=== PATIENT | male | born 1935 | race Caucasian/White ===

== ENCOUNTER 2016-06-27 17:14 | Inpatient (IN) | payer BC, OTHER ==
[~2016-06-27] VITALS: Ht 170.2 cm; Wt 67.5 kg
[~2016-06-27 17:14] MED LIST changes: -CYAN500T PO; -FRS/40 PO; -ISOS60TA25 PO; -METF1000 PO; -METF1TAB53 PO; -POTA10CA28 PO; -RANO500T PO
--- NOTE | 2016-06-27 17:38 | EMERGENCY ROOM VISIT NOTE ---
History Report prepared by Lorna: Kota Leos Under the Supervision of: Dr. Carlin Trevizo M.D. First contact with patient: 17:20 Chief Complaint: REFERRED BY DOCTOR Stated Complaint: FLUID AROUND HEART:NATALIYA LIRIANO SENT TO ER History of Present Illness The patient is a 80 year old male who presents to the Emergency Room with complaints of a referral by Dr. Rosenthal. The patient fell around Peyton time and has since developed fluid around his lungs and heart. He notes he is not eating well and is unable to walk around at home. He admits to having some mild shortness of breath and abdominal discomfort, but denies any headache, vision changes, neck pain, or black or bloody stool. He denies any history of liver problems, and notes he takes Plavix and Aspirin. Source of History: patient Onset: just under 1 month ago Position: other (global) Quality: other (fluild around lungs and heart) Associated Symptoms: + SOB (mild), + abdominal pain (discomfort), No headache, No neck pain Note: The patient denies any vision changes or black or bloody stool. Review of Systems See HPI for pertinent positives & negatives. A total of 10 systems reviewed and were otherwise negative. Past Medical & Surgical Medical Problems: (1) Acute on chronic renal failure (2) Acute on chronic systolic (congestive) heart failure (3) Chest Pain Nos (4) Diverticulosis Colon (W/O Ment Of Hemorrhage) (5) Hyperlipidemia Nec/Nos (6) Joint Pain-L/Leg Family History No pertinent family history stated. Social History Smoking Status: Never Smoker Marital Status: Housing Status: lives with significant other Occupation Status: retired Current/Historical Medications Scheduled Aspirin (Aspirin EC Low Dose), 81 MG PO QAM Atorvastatin (Atorvastatin Calcium), 80 MG PO QAM Clopidogrel Bisulfate (Clopidogrel), 75 MG PO QAM Cyanocobalamin (Vitamin B-12), 500 MCG PO DAILY Furosemide (Lasix), 40 MG PO BID Isosorbide Mononitrate Ext Rel (Imdur Ext Rel), 60 MG PO QAM Lisinopril (Lisinopril), 5 MG PO QAM Metformin Hcl (Glucophage Ext Rel), 1,000 MG PO BID Metoprolol Succinate (Metoprolol Succinate ER), 50 MG PO DAILY Potassium Chloride (Micro-K Ext Rel), 10 MEQ PO DAILY Ranolazine (Ranexa), 500 MG PO BID Scheduled PRN Nitroglycerin (Nitrostat), 0.4 MG SL UD PRN for Chest Pain Allergies Coded Allergies: No Known Allergies (Unverified , 06/27/16) Physical Exam Vital Signs Date Time Temp Pulse Resp B/P Pulse Ox O2 Delivery O2 Flow Rate FiO2 06/27/16 18:59 35.7 06/27/16 18:01 62 06/27/16 18:00 34.3 61 10 113/66 98 Room Air 06/27/16 17:19 86 20 95/60 100 Room Air Physical Exam GENERAL: Patient is chronically unwell appearing and in no acute distress. Cachectic in appearance. HEENT: No acute trauma, normocephalic atraumatic, mucous membranes moist, no nasal congestion, no scleral icterus. Old bruise right orbit. NECK: No stridor, no adenopathy, no meningismus, trachea is midline. LUNGS: No dyspnea. Clear to auscultation and equal bilaterally. No wheeze, no rhonchi. Decreased breath sounds in lower lung lópez; crackles in all lópez. HEART: Regular rate and rhythm. No murmurs, rubs, gallops appreciated. ABDOMEN: Soft, nontender, bowel sounds positive, no masses appreciated, no peritonitis. BACK: No midline tenderness, no CVA tenderness EXTREMITIES: Normal motion all extremities, no cyanosis. 4+ edema bilaterally in the lower legs. NEUROLOGIC: Alert and oriented, no acute motor or sensory deficits, no focal weakness, cranial nerves grossly intact. SKIN: No rash, no jaundice, no diaphoresis. Medical Decision & Procedures ER Provider Diagnostic Interpretation: X ray results are stated below per my interpretation and the radiologist's interpretation. CHEST ONE VIEW PORTABLE FINDINGS: There are low lung volumes. No pneumothorax. Small bilateral pleural effusions. The heart remains mildly enlarged. Perihilar interstitial and vascular thickening likely represents mild pulmonary edema. Bibasilar densities favor compressive atelectasis from the pleural effusions. IMPRESSION: Mild interstitial pulmonary edema with small bilateral pleural effusions. Bibasilar densities favor compressive atelectasis from the pleural fluid. Electronically signed by: Edward Kelley M.D. 06/27/2016 5:49 PM Dictated Date/Time: 06/27/2016 5:47 PM Laboratory Results 06/27/16 17:50 Red Blood Count 3.76, Mean Corpuscular Volume 94.1, Mean Corpuscular Hemoglobin 32.4, Mean Corpuscular Hemoglobin Concent 34.5, Mean Platelet Volume 11.6, Neutrophils (%) (Auto) 96.3, Lymphocytes (%) (Auto) 2.7, Monocytes (%) (Auto) 0.7, Eosinophils (%) (Auto) 0.0, Basophils (%) (Auto) 0.1, Neutrophils # (Auto) 11.62, Lymphocytes # (Auto) 0.33, Monocytes # (Auto) 0.08, Eosinophils # (Auto) 0.00, Basophils # (Auto) 0.01 06/27/16 17:50 Test 06/27/16 17:50 White Blood Count 12.07 K/uL (4.8-10.8) Red Blood Count 3.76 M/uL (4.7-6.1) Hemoglobin 12.2 g/dL (14.0-18.0) Hematocrit 35.4 % (42-52) Mean Corpuscular Volume 94.1 fL (80-100) Mean Corpuscular Hemoglobin 32.4 pg (25-34) Mean Corpuscular Hemoglobin Concent 34.5 g/dl (32-36) Platelet Count 204 K/uL (130-400) Mean Platelet Volume 11.6 fL (7.4-10.4) Neutrophils (%) (Auto) 96.3 % Lymphocytes (%) (Auto) 2.7 % Monocytes (%) (Auto) 0.7 % Eosinophils (%) (Auto) 0.0 % Basophils (%) (Auto) 0.1 % Neutrophils # (Auto) 11.62 K/uL (1.4-6.5) Lymphocytes # (Auto) 0.33 K/uL (1.2-3.4) Monocytes # (Auto) 0.08 K/uL (0.11-0.59) Eosinophils # (Auto) 0.00 K/uL (0-0.5) Basophils # (Auto) 0.01 K/uL (0-0.2) RDW Standard Deviation 55.6 fL (36.4-46.3) RDW Coefficient of Variation 16.1 % (11.5-14.5) Immature Granulocyte % (Auto) 0.2 % Immature Granulocyte # (Auto) 0.03 K/uL (0.00-0.02) Toxic Granulation 1+ Echinocytes 2+ Prothrombin Time 14.6 SECONDS (9.0-12.0) Prothromb Time International Ratio 1.3 (0.9-1.1) Activated Partial Thromboplast Time 32.4 SECONDS (21.0-31.0) Partial Thromboplastin Ratio 1.2 Anion Gap 14.0 mmol/L (3-11) Est Creatinine Clear Calc Drug Dose 19.7 ml/min Estimated GFR () 25.8 Estimated GFR (Non- 22.3 BUN/Creatinine Ratio 34.8 (10-20) Calcium Level 9.2 mg/dl (8.5-10.1) Phosphorus Level 3.5 mg/dl (2.5-4.9) Magnesium Level 2.4 mg/dl (1.8-2.4) Total Bilirubin 1.2 mg/dl (0.2-1) Direct Bilirubin 0.6 mg/dl (0-0.2) Aspartate Amino Transf (AST/SGOT) 49 U/L (15-37) Alanine Aminotransferase (ALT/SGPT) 41 U/L (12-78) Alkaline Phosphatase 226 U/L (45-117) Total Creatine Kinase 339 U/L (39-308) Creatine Kinase MB 3.2 ng/ml (0.5-3.6) Creatine Kinase MB Ratio 0.9 (0-3.0) Pro-B-Type Natriuretic Peptide > 20253 pg/ml (0-1800) Total Protein 6.6 gm/dl (6.4-8.2) Albumin 2.1 gm/dl (3.4-5.0) Lipase 229 U/L (73-393) Laboratory results as reviewed by me. ECG Indication: chest pain Rate (beats per minute): 67 Rhythm: normal sinus Findings: no acute ischemic change, no ectopy, other (low voltage) ED Course 1729: The patient was evaluated in room B10. A complete history and physical exam was performed. 1800: Discussed the patient's case with Dr. Valles - Otis May. The patient will be evaluated for further treatment and disposition. 1805: Upon reevaluation, the patient is hemodynamically stable. Discussed results and treatment plan with the patient. He verbalized understanding and agreement with the treatment plan. The patient will be evaluated for further management. 1846: I reassessed the patient and he is stable. Medical Decision Differential: Sepsis, Infectious (UTI/Pneumonia/Meningitis/etc), Metabolic/ Electrolyte Abnormality, Cardiac, Hepatic, Endocrine, Toxicologic, Neurologic, amongst other pathologies entertained. 80 yr old male arrives with severe weakness at home found to be in acute renal failure as outpatient and sent to ED for admission. Patient appears likely intravascularly depleted, but with anasarca/extravascular overload. CXR with pulmonary edema. Trop elevated though may all be renal failure related as no chest pain. With albumin low I feel much of this is poor nutritional status. Discussed with nephrology (Dr Rosenthal) who feels patient will need to come in and he will see patient tomorrow. Medical team aware and will bring patient in. Stable throughout ED stay. No clear evidence of infection. Consults Time Called: 1755 Consulting Physician: Dr. Valles - Otis May Returned Call: 1800 Discussed the patient's case with Dr. Valles - Otis May. The patient will be evaluated for further treatment and disposition. Impression Primary Impression: Acute renal failure Additional Impressions: Anasarca Pulmonary edema Troponin level elevated Scribe Attestation The scribe's documentation has been prepared under my direction and personally reviewed by me in its entirety. I confirm that the note above accurately reflects all work, treatment, procedures, and medical decision making performed by me. Departure Information Referrals Himanshu Rosenthal M.D. (PCP) Patient Instructions My [facility] Problem Qualifiers Primary Impression: Acute renal failure Acute renal failure type: unspecified Qualified Codes: N17.9 - Acute kidney failure, unspecified Additional Impressions: Pulmonary edema Chronicity: acute Qualified Codes: J81.0 - Acute pulmonary edema
--- NOTE | 2016-06-27 17:51 | DIAGNOSTIC IMAGING REPORT ---
CHEST ONE VIEW PORTABLE HISTORY: Generalized Weakness COMPARISON: Chest 04/10/2015. FINDINGS: There are low lung volumes. No pneumothorax. Small bilateral pleural effusions. The heart remains mildly enlarged. Perihilar interstitial and vascular thickening likely represents mild pulmonary edema. Bibasilar densities favor compressive atelectasis from the pleural effusions. IMPRESSION: Mild interstitial pulmonary edema with small bilateral pleural effusions. Bibasilar densities favor compressive atelectasis from the pleural fluid. Electronically signed by: Edward Kelley M.D. 06/27/2016 5:49 PM Dictated Date/Time: 06/27/2016 5:47 PM
[2016-06-27] MEDS ORDERED: FRS/40 PO (18:00)
[2016-06-27] MEDS ORDERED: CYAN500T PO (18:00)
[2016-06-27] MEDS ORDERED: POTA10CA28 PO (18:00)
[2016-06-27] MEDS ORDERED: ISOS60TA25 PO (18:00)
[2016-06-27] MEDS ORDERED: RANO500T PO (18:00)
[2016-06-27] MEDS ORDERED: METF1TAB53 PO (18:00)
[2016-06-27 18:16] LABS: HEMATOCRIT 35.4 % (42-52); MEAN CELL VOLUME 94.1 fL (80-100); MEAN CORPUSCULAR HEMOGLOBIN 32.4 pg (25-34); MEAN CORPUSCULAR HGB CONC 34.5 g/dl (32-36); MEAN PLATELET VOLUME 11.6 fL (7.4-10.4); PLATELET COUNT 204 K/uL (130-400); RED BLOOD COUNT 3.76 M/uL (4.7-6.1); WHITE BLOOD COUNT 12.07 K/uL (4.8-10.8)
[2016-06-27 18:32] LABS: INR 1.3 (0.9-1.1); PARTIAL THROMBOPLASTIN RATIO 1.2; PROTHROMBIN TIME (PATIENT) 14.6 SECONDS (9.0-12.0)
[2016-06-27 18:34] LABS: ALT/SGPT 41 U/L (12-78); BLOOD UREA NITROGEN 91 mg/dl (7-18); BUN/CREATININE RATIO 34.8 (10-20); CALCIUM 9.2 mg/dl (8.5-10.1); CARBON DIOXIDE 22 mmol/L (21-32); CHLORIDE 103 mmol/L (98-107); GLUCOSE 90 mg/dl (70-99); MAGNESIUM 2.4 mg/dl (1.8-2.4); POTASSIUM 5.4 mmol/L (3.5-5.1); SODIUM 139 mmol/L (136-145)
[2016-06-27 18:44] LABS: ALKALINE PHOSPHATASE 226 U/L (45-117); AST/SGOT 49 U/L (15-37); CKMB/CK RATIO 0.9 (0-3.0); PHOSPHORUS 3.5 mg/dl (2.5-4.9)
[2016-06-27 18:58] LABS: BASO % 0.1 %; BASO ABS # 0.01 K/uL (0-0.2); COMPLETE YES; ECHINOCYTES 2+; IG% 0.2 %; LYMPH % 2.7 %; LYMPH ABS # 0.33 K/uL (1.2-3.4); MONO % 0.7 %; NEUT % 96.3 %; TOXIC GRANULATION 1+
[2016-06-27] MEDS ORDERED: NITROGLYCERIN 0.4 MG SL PER TAB CHARGE SL PRN (19:15)
[2016-06-27] MEDS ORDERED: ACETAMINOPHEN 325 MG TAB PO PRN (19:15)
[2016-06-27] MEDS ORDERED: POLYETHYLENE (MIRALAX) 17 GM PACK PO PRN (19:15)
[2016-06-27] MEDS ORDERED: ONDANSETRON INJ 2 MG/ML 2 ML VIAL IV PRN (19:15)
[2016-06-27] MEDS ORDERED: PHARMACY GLYCEMIC MGMT CONSULT PRN (19:55)
--- NOTE | 2016-06-27 20:19 | Pharmacy Progress Note ---
Glycemic Control Intl Consult Date of Service Jun 27, 2016. Scope Glycemic Pharmacist consulted by Dr Kruger on 06/27/2016 for glycemic control and to write orders per [facility] inpatient glycemic control protocol Objective Weight (Kilograms): 66.200 Accuchecks BSG (last 24hrs): Test 06/27/16 17:50 Random Glucose 90 mg/dl (70-99) Laboratory Data (last 24hrs) Test 06/27/16 17:50 Anion Gap 14.0 mmol/L BUN/Creatinine Ratio 34.8 Blood Urea Nitrogen 91 mg/dl Creatinine 2.60 mg/dl Potassium Level 5.4 mmol/L Sodium Level 139 mmol/L White Blood Count 12.07 K/uL Red Blood Count 3.76 M/uL Hemoglobin 12.2 g/dL Hematocrit 35.4 % Mean Corpuscular Volume 94.1 fL Mean Corpuscular Hemoglobin 32.4 pg Mean Corpuscular Hemoglobin Concent 34.5 g/dl Platelet Count 204 K/uL Mean Platelet Volume 11.6 fL Neutrophils (%) (Auto) 96.3 % Lymphocytes (%) (Auto) 2.7 % Monocytes (%) (Auto) 0.7 % Eosinophils (%) (Auto) 0.0 % Basophils (%) (Auto) 0.1 % Neutrophils # (Auto) 11.62 K/uL Lymphocytes # (Auto) 0.33 K/uL Monocytes # (Auto) 0.08 K/uL Eosinophils # (Auto) 0.00 K/uL Basophils # (Auto) 0.01 K/uL HbA1c 6.6% on 05/29/2016 Recent Pertinent Medications Outpatient Anti-diabetic Regimen: * metformin ER 1000 mg PO BID * A1c = 6.6 % 05/29/2016 Risk Factors for Insulin Resistance: * renal dysfunction with baseline serum creatinine of 1.2-1.3 mg/dL and currently 2.6 mg/dL * Steroids: * Infection: * Pressors: * IVF: * Recent Surgery * Diet: * Mechanical Ventilation: Assessment & Plan ASSESSMENT: * ADA & AACE recommend a goal blood sugar range 140-180 mg/dl for the majority of critically ill & non-critically ill patients. However, more stringent targets may be selected in individual cases. PLAN FOR INPATIENT GLYCEMIC CONTROL: * Holding outpatient oral diabetes medications * Correctional Insulin with NOVOLOG per scale ACHS * Goal Range: Low 120 mg/dL - High 160 mg/dL * Correction Factor: 35 mg/dL/unit * Nutritional / Prandial insulin per carb ratio of 1 unit per 20 grams CHO consumed * Please note that the plan above was derived based on current level of insulin resistance and hospital stress. These recommendations are appropriate for inpatient admission only. Plan of care upon discharge will need to be reassessed to avoid potential outpatient hypo/hyperglycemia. Thank you.
[2016-06-27] MEDS ORDERED: GLUCOSE 40% GEL 15 GM TUBE PO PRN (20:30)
[2016-06-27] MEDS ORDERED: DEXTROSE 50% 50 ML SYR IV PRN (20:30)
[2016-06-27] MEDS ORDERED: GLUCOSE 10 TABS/TUBE PO PRN (20:30)
[2016-06-27] MEDS ORDERED: GLUCAGON FOR INJ 1 MG VIAL SQ PRN (20:30)
[2016-06-27] MEDS: INSULIN ASPART 100 UNITS/ML 3 ML PEN SC SCH (21:39)
[2016-06-27] MEDS: RANOLAZINE 500 MG ER TAB PO SCH (21:39)
[2016-06-27 21:52] VITALS: BP 96/58; PULSE 68; TEMP 36.6; O2SAT 92; Ht 170.2 cm; Wt 67.5 kg
[2016-06-27 22:12] VITALS: PULSE 76; O2SAT 96
--- NOTE | 2016-06-27 22:32 | HISTORY & PHYSICAL EXAMINATION ---
DATE OF ADMISSION: 06/27/2016 PCP: Dr. Edward Perrin. INTEGRATIVE MEDICINE PHYSICIAN: Dr. Himanshu Rosenthal. CHIEF COMPLAINT: Generalized weakness and abnormal labs. HISTORY OF PRESENT ILLNESS: Mr. Mcwilliams is an 80-year-old gentleman with a history of diabetes, CKD, coronary artery disease status post ME in 2014 as well as chronic systolic heart failure. His last echocardiogram was from April 2015 and at that time showed an ejection fraction of 35%. There were multiple hypokinetic or akinetic wall segments, RV looked okay, aortic valve showed mild stenosis, there was also moderate mitral regurg and mild tricuspid regurg. The patient, his children and are at the bedside and provide the history. Apparently, since his heart attack, he really has been having exertional dyspnea, not really able to participate in the activities he normally enjoys; however, over the past 2 weeks, there seems to have been a distinct rapid decline in function. He tells me that he is unable to even get out of a chair. He tells me he has difficulty even changing position in bed. He mentions that he has had some lower extremity edema, was seen by his hack driver who increased his dose of Lasix; however, he says this really had no effect on the edema. He had some routine lab work checked today by his process owner and his creatinine was found to have increased from a baseline of around 1 to 1.1 or 1.2 up to 2.5 this morning. At this point, he was directed to come to the Emergency Department for further workup. His labs here include a chemistry showing a sodium of 139, potassium was high at 5.4, chloride 103, bicarbonate 22, BUN was 91, creatinine 2.6, glucose 90, calcium 9.2, phosphorus 3.5, magnesium 2.4, bilirubin was a little bit elevated at 1.2 with a direct fraction of 0.6, AST 49, ALT 41, alkaline phosphatase was 226, albumin 2.1, total protein 6.6. Cardiac enzymes included a troponin that was elevated to 0.171, CPK of 339, CK-MB of 3.2. His CBC shows a white count of 12,000 with 96% neutrophils, hemoglobin was 12.2 which is around or even slightly higher than his baseline, hematocrit 35.4, platelets 204,000. PT and PTT were both slightly high, PT was 14.6 for an INR of 1.3, PTT was 32.4. The patient himself denies any recent fevers but says he has been having chills. He says that he is cold all the time, constantly using multiple blankets. He denies any chest pain or pressure or discomfort. Denies any palpitations. He says he has had some shortness of breath associated with cough which he says is nonproductive though he feels like there is phlegm in his throat. His mentions that he seems to choke after he eats solid foods. He denies any vomiting, denies any abdominal pain, his mentions that he has had some loose stools over the past couple weeks but says this has been going on longer than his other current issues. He denies any dysuria, hematuria or increased urinary frequency. He denies any increase in his lower extremity edema over the past 2 weeks. Denies any swollen or newly painful joints. He does complain of chronic right knee pain. Denies any new rash. Further, he denies any numbness, tingling or focal weakness and denies any headache. At this point, the patient is being admitted to the telemetry floor for further workup and management. ALLERGIES: None. HOME MEDICATIONS: Include: 1. Aspirin 81 mg p.o. daily. 2. Plavix 75 mg p.o. daily. 3. Atorvastatin 80 mg p.o. daily. 4. Vitamin B12 500 mcg p.o. daily. 5. Lasix 40 mg p.o. b.i.d. for the last 1 week, prior to that had been 40 mg p.o. daily. 6. Imdur 60 mg p.o. daily. 7. Lisinopril 5 mg p.o. daily. 8. Metformin 1000 mg p.o. twice daily. 9. Toprol-XL 50 mg p.o. daily. 10. Sublingual nitroglycerin p.r.n. for chest pain. 11. Potassium 10 mEq p.o. twice daily. 12. Ranexa 500 mg p.o. twice daily. PAST MEDICAL HISTORY: Includes: 1. Coronary artery disease with inferior wall ME in 2014, status post 1 bare-metal stent to the RCA. 2. Chronic systolic heart failure with his most recent ejection fraction from April 2015 being 35%. 3. Moderate mitral regurg. 4. Type 2 diabetes. 5. Osteoarthritis. 6. Dyslipidemia. 7. Mild aortic stenosis. FAMILY HISTORY: One brother in his 30s of an ME, one sibling with colon cancer, one sibling with breast cancer. SOCIAL HISTORY: The patient lives at home with his . He has been much less active and somewhat more dependent over the past 1 year since having an ME. Currently, he is dependent for most aspects of his care over the past 2 weeks. His mentions that he has an approximately 1-pack-year history of smoking but quit when he was a youth. No history of drug or alcohol abuse. 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 REVIEW OF SYSTEMS: A 14-system review was conducted and was found to be completely negative except as otherwise indicated above in the history of present illness. PHYSICAL EXAMINATION: VITAL SIGNS: Currently show temperature is 35.7 rectally, pulse is 62, respiratory rate has been between 10 and 20, blood pressure is 113/66, oxygen saturation 98% on room air. GENERAL: The patient is awake, alert, oriented. He is in no acute distress. He appears to be chronically ill and is somewhat emaciated. HEENT: Sclerae are nonicteric. The mucous membranes are dry. NECK: Trachea is midline. There is no JVD. There is no cervical lymphadenopathy. Thyroid is not palpable. RESPIRATORY: The lungs have scattered crackles throughout. Overall, air entry is fair. He is not in any respiratory distress. CARDIOVASCULAR: S1 and S2 are heard with a regular rate and rhythm. ABDOMEN: Soft, nontender, nondistended. Bowel sounds are present. EXTREMITIES: Cool. There is 3+ pitting edema in bilateral lower extremities. SKIN: Multiple small sacral decubitus ulcers, one of which on the right side is through the dermis completely, the rest are more superficial. There is no purulence. There is no other evidence of infection. NEUROLOGIC: The patient is awake and alert. There are no obvious focal deficits. Gait was not assessed. PSYCHIATRIC: The patient has a somewhat flat affect, otherwise unremarkable. DIAGNOSTIC INVESTIGATIONS: Labs, imaging and EKG were reviewed as outlined above in the history of present illness. ASSESSMENT AND PLAN: 1. Acute on chronic systolic congestive heart failure. 2. Acute on chronic renal failure. 3. Elevated troponin. 4. Coronary artery disease. 5. Type 2 diabetes. 6. Malnutrition. 7. Sacral decubitus ulcer. At this point, this patient is presenting with a 2-week history of a significant decline in functional status. He is with generalized weakness, edema, renal failure and an elevated troponin. I am concerned he may have had an ME in the last 2 weeks and is now with a significant decline in his ejection fraction. He is maintaining a blood pressure at this point, he is hemodynamically stable. We will continue to trend his cardiac enzymes. If he does trend upward, we would need to initiate him on anticoagulation to treat as an NSTEMI, but at this point, given lack of any symptoms recently, we will continue to trend his enzymes first. We will ask cardiology to evaluate as well as nephrology. We will check an echocardiogram to evaluate EF as well as his valvular function. We will hold all diuretics for the time being, at least until he can be seen by nephrology. We will hold his metformin and start him on sliding scale coverage. We will ask for a wound care consult as well as the dietitian to stop by for recommendations regarding his malnutrition. DVT prophylaxis will be with subcutaneous heparin. Total time spent preparing this history and physical was 60 minutes.
[2016-06-28] VITALS (7 sets, daily range): BP systolic 87–114; BP diastolic 50–71; PULSE 64–71; TEMP 35–36.7; O2SAT 93–99
[2016-06-28 05:54] LABS: HEMATOCRIT 31.5 % (42-52); MEAN CELL VOLUME 92.9 fL (80-100); MEAN CORPUSCULAR HEMOGLOBIN 32.2 pg (25-34); MEAN CORPUSCULAR HGB CONC 34.6 g/dl (32-36); MEAN PLATELET VOLUME 11.4 fL (7.4-10.4); PLATELET COUNT 172 K/uL (130-400); RED BLOOD COUNT 3.39 M/uL (4.7-6.1)
[2016-06-28 06:21] LABS: COMPLETE YES; ECHINOCYTES 3+; IG% 0.3 %; LYMPH % 3.4 %; LYMPH ABS # 0.36 K/uL (1.2-3.4); MONO % 0.7 %; NEUT % 95.6 %; TOXIC GRANULATION OCCASIONAL
[2016-06-28 06:22] LABS: BUN/CREATININE RATIO 36.5 (10-20); CALCIUM 8.8 mg/dl (8.5-10.1); CREATININE 2.7 mg/dl (0.60-1.40); POTASSIUM 5.4 mmol/L (3.5-5.1)
[2016-06-28] MEDS: INSULIN ASPART 100 UNITS/ML 3 ML PEN SC SCH ×4 (07:00→20:43)
[2016-06-28] MEDS ORDERED: INFLUENZA ADMINISTRATION CHARGE ONE (08:00)
[2016-06-28] MEDS ORDERED: INFLUENZA VIRUS QUAD VACCINE 0.5 ML SYR IM. ONE (08:00)
[2016-06-28] MEDS ORDERED: METOPROLOL SUCC 50MG EXT REL TAB PO SCH (09:00)
--- NOTE | 2016-06-28 09:15 | Pharmacy Progress Note ---
Glycemic: Assessment & Plan Date of Service Jun 28, 2016. Assessment & Plan Item Value Date Time Bedside Glucose 89 mg/dl 06/28/16 0635 Random Glucose 92 mg/dl 06/28/16 0527 Bedside Glucose 90 mg/dl 06/27/16 2138 Home Diabetes Regimen: * Currently on hold during this ADM: metformin 1000mg ER po BID PLAN: No basal needed at this time. Will only order Novolog per CF, will reassess need to add CR over time. * Basal insulin: not needed at this time * Correctional Insulin: Novolog Correction per scale ACHS Goal Range: Low 120 mg/dL - High 160 mg/dL Correction Factor: 35 mg/dL/unit * Prandial insulin: not needed at this time Pharmacy will continue to monitor patient daily and write orders per [facility] inpatient glycemic control protocol. Thanks. * Please note that the plan above was derived based on current level of insulin resistance and hospital stress. These recommendations are appropriate for inpatient admission only. Plan of care upon discharge will need to be reassessed to avoid potential outpatient hypo/hyperglycemia.
[2016-06-28] MEDS: CYANOCOBALAMIN 500 MCG TAB (VIT B-12) PO SCH (09:39)
[2016-06-28] MEDS: RANOLAZINE 500 MG ER TAB PO SCH (09:39)
[2016-06-28] MEDS: CLOPIDOGREL BISULFATE 75 MG TAB PO SCH (09:40)
[2016-06-28] MEDS: ASPIRIN 81 MG ECTAB PO SCH (09:40)
[2016-06-28] MEDS: ATORVASTATIN 40 MG TAB PO SCH (09:41)
[2016-06-28] MEDS: ISOSORBIDE MONONITRATE 60 MG TABCR PO SCH (09:43)
[2016-06-28] MEDS: HEPARIN SOD 5000 UNIT/0.5 ML CARP SQ SCH ×2 (09:44→20:43)
[2016-06-28] MEDS: DOBUTamine / D5W 500 MG IV PRN (12:02)
--- NOTE | 2016-06-28 12:07 | NEPHROLOGY CONSULTATION ---
DATE OF CONSULTATION: 06/28/2016 REFERRING PHYSICIAN: [facility] hospitalist service. PROBLEM: Renal insufficiency associated with congestive heart failure. SUBJECTIVE: Mr. Mcwilliams is an 80-year-old gentleman who I met for the first time in consultation with the [facility] heart failure clinic yesterday. He has been followed regularly by Dr. Edward Perrin primarily for complex sleep apnea syndrome and has also been followed by Dr. Markos Nelson and Dr. Mark Christie for coronary artery disease and his ischemic cardiomyopathy. Apparently, there is a longstanding history of noninsulin dependent diabetes mellitus, which has been managed with Metformin 1000 mg twice daily prior to his hospitalization. Additionally, he has a history of hypercholesterolemia, which has been managed with atorvastatin 80 mg daily. Additionally, he takes an 81-mg aspirin a day. There is no apparent history of hypertension and review of his chart indicates that his blood pressure at least in recent years has generally been in the range of 100-110 systolic over 60-70 diastolic. His other issues include a complex sleep apnea syndrome, for which he has been on BiPAP. Apparently, despite the above issues, Mr. Mcwilliams was doing relatively well until 04/10/2015 when he presented here with chest pain. He went directly to the cardiac catheterization lab and was found to have 3-vessel coronary artery disease. He was treated with a bare-metal stent to the right coronary artery. Apparently, no other interventions were done at that time. Since that time, he has been on the aspirin as noted above as well as clopidogrel 75 mg daily. His most recent echocardiogram was done in April 2015. That showed evidence of left ventricular hypertrophy with a moderate decrease in left ventricular function. He had an ejection fraction of 34.5%. He was noted to have moderate inferior and posterior wall hypokinesis as well as apical and anterior wall akinesis. He had mild aortic stenosis with an estimated valve area of 1.7 square cm. He also had evidence of mitral annular calcification. He had mild tricuspid regurgitation with an estimated increase in his right ventricular systolic pressure to the range of 30-40 mmHg. He did have some evidence of congestive heart failure related to an ischemic cardiomyopathy. His other medications included isosorbide mononitrate ER 60 mg daily, lisinopril 5 mg daily and metoprolol succinate ER 50 mg daily. More recently, Ranexa 500 mg q. 12 hours was added to his regimen. Additionally, he has been taking Lasix 40 mg daily with potassium chloride 10 mEq daily. Mr. Mcwilliams was apparently doing reasonably well and remained somewhat functional in his compromised state of ill health until about 2015. From that time forward, he developed increasing edema, increasing weakness, poor appetite and a gradual decrease in his mobility. He was seen by Dr. Christie approximately 1 week ago. At that time, he showed increasing evidence of congestive heart failure. His Lasix was increased to 80 mg daily. Nonetheless, Mr. Mcwilliams continued on his decline. He was seen in followup in heart failure clinic yesterday. At that time, he appeared to be a gentleman with cardiac cachexia. He was obviously weak. He did not appear to be particularly short of breath. He was not complaining of chest pain and he did not give a history of any chest pain that occurred around that time when his decline occurred. On physical exam, he showed obvious signs of weight loss. He was relatively hypotensive. He was not particularly tachycardic. Jugular veins were elevated. I did not note an enlarged liver at that time. He had significant lower extremity edema. He presented himself as a gentleman with obvious cardiac cachexia. He was referred to the Emergency Room for admission and care. His other medical issues include a history of complex sleep apnea, for which he uses BIPAP at home. He has been noted to have microscopic hematuria, but his renal function has always been reasonably normal with serum creatinines generally ranging from 0.95 to 1.2 mg/dL. His BUN within the recent months has generally been in the range of 22-23. His serum albumin was in the range of 3.3-3.9 g/dL. However, yesterday, laboratory work showed a BUN of 91 and a creatinine of 2.5 mg/dL and a serum albumin of 2.1 g/dL. 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 The remainder of his past medical history, family history, social history and review of system is summarize on Dr. Kruger's very complete admission note and I have nothing to add to that. OBJECTIVE: GENERAL: On physical exam at the current time, Mr. Mcwilliams appears as a chronically ill gentleman, who was obviously very weak. He shows signs of recent weight loss. VITAL SIGNS: He is afebrile (36.3), his blood pressure 95/50, his pulse 69 and regular, respiratory rate 18, and his pulse ox 95% on room air. SKIN: Shows slightly diminished skin turgor. He has some scattered ecchymoses. There is no obvious rash or infiltrative skin disease. LYMPHATICS: Show no palpable lymphadenopathy. HEAD: Normal. EYES: Grossly normal. He has no conjunctival icterus. Pupils are reactive to light. I did not examine the ocular fundi. EARS, NOSE, MOUTH AND THROAT: Unremarkable. Oral mucous membranes are slightly dry. NECK: Shows jugular venous distention about 6-7 cm above the clavicle, lying at about 45 degrees. I hear no carotid bruit. There is no thyromegaly. CHEST: Shows a few scattered coarse rales. There are no rhonchi. He has a loose cough. Breath sounds are generally slightly diminished. His chest wall shows an apparent displaced right clavicle at the sternoclavicular joint. CARDIAC: Shows a regular rhythm. S1 and S2 are normal. I do not hear definite gallop sounds at this time. He does have a grade 1-2/6 systolic ejection murmur heard best along the left sternal border and at the base as well as at the apex. ABDOMEN: Soft. It is not particularly tender. There is no definite fluid wave. He is not particularly tender over the liver. His spleen is not palpable. EXTREMITIES: Show no cyanosis or clubbing. He has 3+ lower extremity edema below the knees and 1-2+ lower extremity edema from the upper thigh to the knee. Peripheral pulses are slightly diminished, but they are present. NEUROLOGIC: Shows him to be globally weak, but he has no lateralizing changes. PERTINENT LABORATORY WORK: Here today shows a white count of 10,600 with 95.6% neutrophils, 3.4% lymphocytes, and 0.7% monocytes. His hemoglobin is 10.9, his hematocrit 31.5, and his platelet count 172,000. His prothrombin time on admission was 14.6 with an INR of 1.3. His PTT was 32.4 with a PTTR of 1.2. Clinical chemistries from today show a sodium of 141 mmol/L, potassium 5.4 mmol/L, chloride 104 mmol/L, and CO2 content 25 mmol/L. His anion gap is 12.0, but does not take into account his serum albumin, which was 2.1. Taking that into account, his anion gap would more likely be 17. His BUN is 99 and his creatinine 2.7. Random blood sugar was 92 and his serum calcium was 8.8. His troponins have varied from 0.154 to 0.171. His CK and CK-MBs have been essentially within the normal range. An echocardiogram was done earlier today. ASSESSMENT: From the standpoint of his renal function, it certainly appears that the disproportionate increase in his BUN to his creatinine is consistent with prerenal azotemia. He likely has biventricular heart failure, although clinically it seems as if the right side is worse than the left. I suspect that his ejection fraction in general is probably worse than it was in 2015. His low serum albumin will make it extremely difficult to diurese him. Overzealous use of diuretics may be problematic. Depending on the results of his echocardiogram, he might be a decent candidate for a dobutamine starting at a dose of 5 mcg per kilogram per minute. If assuming that is started by cardiology, I would then start him on Lasix 40 mg mixed with 12.5 grams of albumin infuse daily. Depending on his laboratory work and response, we can always increase his diuretics. Hopefully, the albumin will not give him an immediate oncotic load that could be manifested by worsening left-sided heart failure symptoms. No other workup is needed immediately. I do not think imaging studies of his kidneys at this time will be at all helpful. Given his global weakness, we need to make sure that he is going to be able to void. Intermittent bladder scans will be helpful in that regard. Thank you for allowing me to participate in his inpatient care. I will follow him with you.
--- NOTE | 2016-06-28 13:38 | CARDIOLOGY CONSULTATION ---
DATE OF CONSULTATION: 06/28/2016 REASON FOR CONSULTATION: Heart failure/ischemic cardiomyopathy. HISTORY OF PRESENT ILLNESS: Mr. Mcwilliams is an 80-year-old man with a history of severe multivessel coronary artery disease status post inferior W[place] in 2014, ischemic cardiomyopathy with prior EF approximately 35%, diabetes, hypertension, dyslipidemia, obstructive sleep apnea who was admitted from clinic yesterday in the setting of progressive fatigue, lower extremity edema/weakness and renal failure. Cardiology consulted for further management regarding ischemic cardiomyopathy and potential heart failure. The patient previously followed by Dr. Christie from a cardiology standpoint. The patient's prior cardiac history is remarkable for [place] back in March of 2015, at which time he presented with acute inferior STEMI, underwent cardiac catheterization and had successful 2.25 x 18 Integrity bare-metal stent placed to his mid RCA. The patient was noted in addition to have severe multivessel coronary artery disease with 75% ostial LAD, 90% proximal LAD as well as 75% ostial left circumflex and 75% ostial PDA disease. He had brisk left to right collaterals from the distal LAD to his right PDA, noted on catheterization. He underwent an echo at that time which showed an EF of 35% with evidence of anteroapical, anteroseptal, inferior and posterior infarct. Following discharge from that hospitalization, he later underwent a myocardial perfusion scan to assess for viability. At that time he was noted to have evidence of inferior and apical myocardial infarction with no evidence of stress induced ischemia, EF could not be assessed on that study. Due to lack of ischemia, decision was made to forgo further attempts at revascularization and patient has been managed medically since. Largely since that event, he has done well over the last year. Approximately 1 month ago, the patient began noting worsening lower extremity edema with associated lower extremity weakness. This was also associated with decreased appetite and generalized fatigue. He was seen as an outpatient by his primary care physician, Dr. Perrin as well as Dr. Christie. His diuretics were increased from 40 mg to 80 mg b.i.d. This was done most recently 1 week ago on June 19. The patient returned for outpatient followup with Dr. Rosenthal yesterday. There patient was noted to be cachectic with 2-3+ lower extremity edema and weak to the point where he unable to walk at all. On lab work he was noted to have new acute renal failure with a BUN of 91 and creatinine of 2.5, up from 33 and 1.2 1 month prior. In addition, his albumin was noted to be low at 2.1, again down from 3.4 1 month prior. As a result, the patient was admitted to [facility]. Initially on presentation, patient was hemodynamically stable. He had an EKG which showed sinus rhythm and evidence of old inferior/septal infarct. No acute dynamic ST changes. Initial lab work was remarkable for a troponin, initially positive at 0.17, then to 0.16 now down to 0.15. ProBNP was noted to be elevated at more than 35,000 and creatinine remained elevated this morning 2.7 with BUN of 99. At time of interview this morning, patient just feels generally weak, particularly in his legs. Denies any recent chest pain. Denies any significant shortness of breath. Denies any presyncope or palpitations. PAST MEDICAL HISTORY: 1. Coronary artery disease status post inferior [place] in March 2015, treated with 1 bare-metal stent 2.25 x 18 to mid RCA. Severe multivessel disease as discussed above. 2. Ischemic cardiomyopathy/chronic systolic heart failure, EF of 35%. 3. Type 2 diabetes. 4. Osteoarthritis. 5. Dyslipidemia. 6. Mild to moderate mitral regurgitation. 7. Moderate aortic stenosis. FAMILY HISTORY: He has 1 brother who of an [place] in his 30s and also 1 sibling with colon cancer, otherwise noncontributory. SOCIAL HISTORY: The patient lives at home with his , has no significant past smoking or alcohol history. 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 REVIEW OF SYSTEMS: Ten-point review of systems was completed and otherwise negative unless stated in HPI. HOME MEDICATIONS: Include aspirin 81, Plavix 75, atorvastatin 80, vitamin B12, Lasix 80 mg b.i.d., Imdur 60, lisinopril 5, metformin 1000 twice daily, Toprol-XL 50 mg daily, p.r.n. sublingual nitroglycerin, potassium 10 mEq twice daily and Ranexa 500 mg twice daily. ALLERGIES: None. PHYSICAL EXAMINATION: VITAL SIGNS: Temperature this morning 36.3, pulse 69, blood pressure 95/50, satting 90% on room air. GENERAL: The patient appears chronically ill, cachectic, but in no acute distress. HEENT: His sclerae are anicteric. His oropharynx is clear and dry. NECK: Supple. There is no lymphadenopathy, JVP is approximately 7-8 with normal carotid upstrokes. LUNGS: He has decreased breath sounds at his bases bilaterally with no significant rales. CARDIAC: Regular. He has a 2/6 holosystolic murmur heard best at the apex. ABDOMEN: Soft. There is no appreciable hepatosplenomegaly. EXTREMITIES: Cool. There is 2-3+ lower extremity edema up to his thighs, intact distal pulses. SKIN: He has got petechiae over his torso, more notable on the back. No other significant rashes. NEUROLOGIC: Cranial nerves II-XII are grossly intact. Remainder of exam is nonfocal. PSYCHIATRIC: He is alert and oriented x3. Mood is flat. LABORATORY DATA: Sodium 141, potassium 5.4, BUN 99, creatinine of 2.7, random glucose 92, calcium 8.8. Troponins 0.17, 0.16, 0.15. INR of 1.3, hemoglobin of 10.9, hematocrit of 31. White blood cell count of 10.6, platelets of 172. Initial LFTs: Total bili 1.6, AST 49, ALT 41, alk phos 226, albumin of 2.1, total protein of 6.6. IMAGING: Chest x-ray showed mild interstitial pulmonary edema with small bilateral pleural effusions. Echo obtained this morning was reviewed. The patient now with severe LV dysfunction, EF estimated 20-25% with regional wall motion abnormalities, most notably inferior and septal romero are akinetic, anterior wall is hypokinetic, apex akinetic. There is mild to moderate RV dysfunction. IVC is not dilated but does not change with respiration. Estimated RA pressure approximately 8-10. Estimated calculated cardiac output is low of approximately 2.4 liters per minute. IMPRESSION AND PLAN: 1. Acute systolic heart failure/low output failure. The patient has evidence of both mild pulmonary and systemic venous congestion on exam. Elevated left and right filling pressures also suggested on Echo. In addition shows worsened left ventricular dysfunction with suggestion of low cardiac output. In that setting, I feel that patient would benefit from starting low dose inotrope, would start on dobutamine 5 mcg/min/kilogram. Hopeful that with inotropes and diuresis in the setting of potentially using additional albumin due to his low oncotic pressure could mobilize some fluid and improve overall cardiac performance. I have discussed this with Dr. Rosenthal and he will order diuretics in the setting of his renal failure. Patient may benefit from right heart catheterization to guide additional inotrope therapy. 2. Ischemic cardiomyopathy/severe multivessel coronary artery disease/minimally elevated troponin. Low suspicion for current presenation represents an acute coronary syndrome. Have reviewed patient's most recent cardiac catheterization. Suspect LV dysfunction may be secondary due to progression of his LAD disease but overall he has severely diseased small vessels for which revascularization options are limited. In the setting of current low output heart failure for now recommend holding metoprolol, as well as Ranexa in the setting of acute kidney failure. Will continue patient on aspirin, atorvastatin and Plavix as well as Imdur for now. Lisinopril already on hold. Pending clincal course will can revisit revascularization options. 3. Acute kidney injury. New acute kidney failure, likely secondary to cardiorenal syndrome in the setting of low cardiac output and increased diuretics. Nephrology following and managing diuretics and albumin. We will continue to follow while in hospital. Please contact with any questions. KRISHNA
--- NOTE | 2016-06-28 15:32 | ECHOCARDIOGRAM REPORT ---
*NOTICE TO RECEIVING LIBERTARIAN AGENCY This information is strictly Confidential and protected under [place] law. [place] law prohibits you from making any further disclosure of this information unless further disclosure is expressly permitted by the written consent of the person to whom it pertains or is authorized by law. A general authorization for the release of medical or other information is not sufficient for this purpose. Hospital accepts no responsibility if the information is made available to any other person, INCLUDING THE PATIENT. Interpretation Summary * Name: ROXANA HOPKINS Study Date: 06/28/2016 07:37 AM BP: 95/50 mmHg * Patient Location: C.2T\S\S239\S\2 HR: 67 * : 1935 (M/d/yyyy) Gender: Male Height: 65 in * Age: 80 yrs Ethnicity: CA Weight: 145 lb * Ordering Physician: Chaz Kruger * Referring Physician: Himanshu Rosenthal * Performed By: Mary Alvarado RCS * * Reason For Study: CHF * BSA: 1.7 m2 * -- Conclusions -- * 1. Normal LV size, normal LV wall thickness. * 2. Severe LV dysfunction. LVEF 20-25%. Inferior, septal and apical segments akinetic. Mid anterior, anteroseptal segments severly hypokinetic. Remaining segments mildly hypokinetic. Grade II diastolic dysfunction. * 3. RV moderately dilated with moderate-severe RV dysfunction. * 4. Mild mitral regurgitation. * 5. Aortic valve sclerosis without stenosis. Mild AI. * 6. Mild to moderate TR. * 7. Estimated filling pressues high (E/e' >15, RA \R\10, PASP \R\40mmHg) and severely reduced estimated cardiac output (SV 30 ml, CO \R\ 2 L/min). * 8. Moderate size left pleural effusion * 9. Compared with prior study on 04/11/2015: LV function now severe. RV function now moderate to severe. Procedure Details * A complete two-dimensional transthoracic echocardiogram was performed (2D, M-mode, Doppler and color flow Doppler). Left Ventricle * The left ventricle is grossly normal size. * There is normal left ventricular wall thickness. * Ejection Fraction = 20-25%. * There is severe anterior wall hypokinesis. * There is mild posterior wall hypokinesis. * There is mild lateral wall hypokinesis. * There is inferior wall akinesis. * There is septal akinesis. * There is apical akinesis. Right Ventricle * The right ventricle is moderately dilated. * The right ventricular systolic function is moderate to severely reduced. Atria * The left atrial size is normal. * The right atrium is severely dilated. * No ASD detected; PFO is not assessed. Mitral Valve * There is moderate mitral annular calcification. * There is no mitral valve stenosis. * There is mild mitral regurgitation. Tricuspid Valve * There is mild to moderate tricuspid regurgitation. * Right ventricular systolic pressure is elevated at 30-40mmHg. Aortic Valve * The aortic valve opens well. * Aortic valve sclerosis mild, without significant aortic valvular stenosis. * Mild aortic regurgitation. Pulmonic Valve * The pulmonary valve is inadequately visualized, but the Doppler data is adequate for interpretation. * Pulmonic stenosis is absent. * Trace pulmonic valvular regurgitation. Pericardium/Pleural * There is no pericardial effusion. * Moderate size left pleural effusion. Great Vessels * IVC < 2.1 cm, no change with respiration. Estiamated RA pressure \R\8 mmHg Left Ventricular Diastolic Function * Diastolic dysfunction, Grade II, consistent with elevated left atrial pressure. MMode 2D Measurements and Calculations IVSd 1.1 cm IVSs 1.4 cm LVIDd 4.4 cm LVIDs 4.0 cm LVPWd 0.99 cm LVPWs 1.5 cm IVS/LVPW 1.1 FS 8.6 % EDV(Teich) 87.3 ml ESV(Teich) 70.6 ml EF(Teich) 19.1 % EDV(cubed) 84.7 ml ESV(cubed) 64.7 ml EF(cubed) 23.6 % % IVS thick 23.8 % % LVPW thick 47.4 % LV mass(C)d 159.8 grams LV mass(C)dI 92.6 grams/m\S\2 LV mass(C)s 216.8 grams LV mass(C)sI 125.6 grams/m\S\2 SV(Teich) 16.7 ml SI(Teich) 9.7 ml/m\S\2 SV(cubed) 20.0 ml SI(cubed) 11.6 ml/m\S\2 Ao root diam 2.9 cm Ao root area 6.8 cm\S\2 ACS 1.7 cm LA dimension 3.9 cm LA/Ao 1.3 LVOT diam 1.5 cm LVOT area 1.7 cm\S\2 LVAd ap4 29.1 cm\S\2 LVLd ap4 7.4 cm EDV(MOD-sp4) 92.9 ml EDV(sp4-el) 97.1 ml LVAs ap4 24.3 cm\S\2 LVLs ap4 7.0 cm ESV(MOD-sp4) 68.6 ml ESV(sp4-el) 71.2 ml EF(MOD-sp4) 26.2 % EF(sp4-el) 26.7 % SV(MOD-sp4) 24.3 ml SI(MOD-sp4) 14.1 ml/m\S\2 SV(sp4-el) 25.9 ml SI(sp4-el) 15.0 ml/m\S\2 Doppler Measurements and Calculations MV E max john 103.0 cm/sec MV A max john 42.1 cm/sec MV E/A 2.4 MV P1/2t max john 100.6 cm/sec MV P1/2t 86.3 msec MVA(P1/2t) 2.5 cm\S\2 MV dec slope 341.2 cm/sec\S\2 MV dec time 0.18 sec Ao V2 max 107.0 cm/sec Ao max PG 4.6 mmHg Ao max PG (full) 3.3 mmHg RU(V,A) 0.92 cm\S\2 RU(V,D) 0.92 cm\S\2 LV V1 max PG 1.3 mmHg LV V1 max 56.9 cm/sec MR max john 416.8 cm/sec MR max PG 69.5 mmHg PA V2 max 73.3 cm/sec PA max PG 2.2 mmHg TR max john 269.9 cm/sec
--- NOTE | 2016-06-28 15:43 | Hospitalist Progress Note ---
Hospitalist Progress Note Date of Service Jun 28, 2016. Subjective Pt evaluation today including: conversation w/ patient, conversation w/ family , physical exam, chart review, lab review, review of studies, conversation w/ law firm consultant, review of inpatient medication list Pt denies any new complaints. Still having some pain from decub ulcers Medications Medications (Trade) Dose Ordered Sig/Zurdo Route Start Time Stop Time Status Last Admin Dose Admin Heparin Sodium (Porcine) (Heparin Sq 5000 Unit/0.5ml) 5,000 unit Q12 SQ 06/28/16 09:00 07/28/16 08:59 06/28/16 09:44 5,000 UNIT Aspirin (Ecotrin Tab) 81 mg QAM PO 06/28/16 09:00 07/28/16 08:59 06/28/16 09:40 81 MG Atorvastatin Calcium (Lipitor Tab) 80 mg QAM PO 06/28/16 09:00 07/28/16 08:59 06/28/16 09:41 80 MG Clopidogrel Bisulfate (plAVix TAB) 75 mg QAM PO 06/28/16 09:00 07/28/16 08:59 06/28/16 09:40 75 MG Cyanocobalamin (Vitamin B-12 Tab) 500 mcg DAILY PO 06/28/16 09:00 07/28/16 08:59 06/28/16 09:39 500 MCG Isosorbide Mononitrate (Imdur Ext Rel Tab) 60 mg QAM PO 06/28/16 09:00 07/28/16 08:59 06/28/16 09:43 60 MG Metoprolol Succinate (Toprol Xl Tab) 50 mg DAILY PO 06/28/16 09:00 06/28/16 11:36 DC 06/28/16 09:43 50 MG Ranolazine 500 mg 500 mg BID PO 06/27/16 21:00 06/28/16 11:36 DC 06/28/16 09:39 500 MG Dobutamine HCl (DOBUTamine / D5W) 250 ml @ 0 mls/hr Q0M PRN IV 06/28/16 12:00 07/28/16 11:59 06/28/16 12:02 10.1 MLS/HR Objective Vital Signs Date Time Temp Pulse Resp B/P Pulse Ox O2 Delivery O2 Flow Rate FiO2 06/28/16 12:00 Room Air 06/28/16 11:33 35.0 66 19 101/56 95 Room Air 06/28/16 08:00 Room Air 06/28/16 07:52 36.3 69 18 95/50 95 Room Air 06/28/16 04:00 94 CPAP 2.0 06/28/16 04:00 35.9 65 20 114/71 97 Room Air 06/28/16 00:00 35.7 71 20 87/51 99 CPAP 06/28/16 00:00 94 CPAP 2.0 06/27/16 22:12 76 96 2.0 06/27/16 21:52 36.6 68 18 96/58 92 Nasal Cannula 2.0 06/27/16 20:16 60 12 110/59 98 Room Air 06/27/16 18:59 35.7 06/27/16 18:01 62 06/27/16 18:00 34.3 61 10 113/66 98 Room Air 06/27/16 17:19 86 20 95/60 100 Room Air Physical Exam General Appearance: no apparent distress Respiratory/Chest: no respiratory distress, + crackles Cardiovascular: regular rate, rhythm Abdomen: non tender, soft Extremities: + pedal edema Neurologic/Psychiatric: + pertinent finding (sleeping but roused easily) Skin: + pertinent finding (cool and dry) Laboratory Results Last 24 Hours Test 06/27/16 17:50 06/27/16 21:38 06/27/16 23:47 06/28/16 05:27 White Blood Count 12.07 K/uL 10.60 K/uL Red Blood Count 3.76 M/uL 3.39 M/uL Hemoglobin 12.2 g/dL 10.9 g/dL Hematocrit 35.4 % 31.5 % Mean Corpuscular Volume 94.1 fL 92.9 fL Mean Corpuscular Hemoglobin 32.4 pg 32.2 pg Mean Corpuscular Hemoglobin Concent 34.5 g/dl 34.6 g/dl Platelet Count 204 K/uL 172 K/uL Mean Platelet Volume 11.6 fL 11.4 fL Neutrophils (%) (Auto) 96.3 % 95.6 % Lymphocytes (%) (Auto) 2.7 % 3.4 % Monocytes (%) (Auto) 0.7 % 0.7 % Eosinophils (%) (Auto) 0.0 % 0.0 % Basophils (%) (Auto) 0.1 % 0.0 % Neutrophils # (Auto) 11.62 K/uL 10.14 K/uL Lymphocytes # (Auto) 0.33 K/uL 0.36 K/uL Monocytes # (Auto) 0.08 K/uL 0.07 K/uL Eosinophils # (Auto) 0.00 K/uL 0.00 K/uL Basophils # (Auto) 0.01 K/uL 0.00 K/uL RDW Standard Deviation 55.6 fL 54.5 fL RDW Coefficient of Variation 16.1 % 15.9 % Immature Granulocyte % (Auto) 0.2 % 0.3 % Immature Granulocyte # (Auto) 0.03 K/uL 0.03 K/uL Toxic Granulation 1+ OCCASIONAL Echinocytes 2+ 3+ Prothrombin Time 14.6 SECONDS Prothromb Time International Ratio 1.3 Activated Partial Thromboplast Time 32.4 SECONDS Partial Thromboplastin Ratio 1.2 Sodium Level 139 mmol/L 141 mmol/L Potassium Level 5.4 mmol/L 5.4 mmol/L Chloride Level 103 mmol/L 104 mmol/L Carbon Dioxide Level 22 mmol/L 25 mmol/L Anion Gap 14.0 mmol/L 12.0 mmol/L Blood Urea Nitrogen 91 mg/dl 99 mg/dl Creatinine 2.60 mg/dl 2.70 mg/dl Est Creatinine Clear Calc Drug Dose 19.7 ml/min 20.4 ml/min Estimated GFR () 25.8 24.7 Estimated GFR (Non- 22.3 21.3 BUN/Creatinine Ratio 34.8 36.5 Random Glucose 90 mg/dl 92 mg/dl Calcium Level 9.2 mg/dl 8.8 mg/dl Phosphorus Level 3.5 mg/dl Magnesium Level 2.4 mg/dl Total Bilirubin 1.2 mg/dl Direct Bilirubin 0.6 mg/dl Aspartate Amino Transf (AST/SGOT) 49 U/L Alanine Aminotransferase (ALT/SGPT) 41 U/L Alkaline Phosphatase 226 U/L Total Creatine Kinase 339 U/L Creatine Kinase MB 3.2 ng/ml Creatine Kinase MB Ratio 0.9 Troponin I 0.171 ng/ml 0.164 ng/ml 0.154 ng/ml Pro-B-Type Natriuretic Peptide > 16832 pg/ml Total Protein 6.6 gm/dl Albumin 2.1 gm/dl Lipase 229 U/L Bedside Glucose 90 mg/dl Test 06/28/16 06:35 06/28/16 10:59 Bedside Glucose 89 mg/dl 88 mg/dl Assessment and Plan (1) Acute on chronic systolic (congestive) heart failure Assessment & Plan: Case was discussed with Cardiology. He is now on dobutamine and Lasix/albumin. He is starting to diurese. Will continue to monitor. Nephro is also following closely. (2) Troponin level elevated Assessment & Plan: Pattern not consistent with ACS. (3) Acute on chronic renal failure Assessment & Plan: Likely cardiorenal. Will monitor Cr trend while on dobutamine and diuretics. (4) Decubitus ulcer of sacral region Assessment & Plan: Wound care, encourage activity, frequent repositioning, nutrition supplements (5) Protein calorie malnutrition Assessment & Plan: Corpsman input appreciated. Continue supplements. (6) CAD (coronary artery disease) Assessment & Plan: On ASA, Plavix, nitrate, statin. BB and Ranexa held due to low output HF (7) DM2 (diabetes mellitus, type 2) Assessment & Plan: Pharm managing sliding scale. Reasonable control. Continued [facility] stay due to: multiple IV medications needed
[2016-06-28] MEDS: ALBUMIN 25% 50 ML with FUROSEMIDE INJ 40 MG IV SCH ×2 (16:14)
[2016-06-28] MEDS: BOOST GLUCOSE CONTROL PO SCH (16:45)
[2016-06-28 21:03] LABS: URINE APPEARANCE CLOUDY (CLEAR); URINE BILIRUBIN NEG (NEG); URINE COLOR YELLOW; URINE NITRITE NEG (NEG); URINE SPECIFIC GRAVITY 1.008 (1.000-1.030); UROBILINOGEN NEG (NEG); ZZUR CULT IF INDIC CLEAN CATCH YES
[2016-06-28 21:09] LABS: MANUAL MICROSCOPIC REQUIRED? NO; REVIEW REQ? YES
[2016-06-28 21:36] LABS: URINE PATH CASTS 1-5 GRANULAR CASTS /lpf (0)
[2016-06-29 04:24] VITALS: BP 106/60; PULSE 74; TEMP 36.5; O2SAT 95
[2016-06-29 06:19] LABS: HEMATOCRIT 31.1 % (42-52); MEAN CORPUSCULAR HEMOGLOBIN 33.2 pg (25-34); MEAN CORPUSCULAR HGB CONC 35.4 g/dl (32-36); MEAN PLATELET VOLUME 11.4 fL (7.4-10.4); PLATELET COUNT 156 K/uL (130-400); RED BLOOD COUNT 3.31 M/uL (4.7-6.1); WHITE BLOOD COUNT 9.46 K/uL (4.8-10.8)
[2016-06-29 06:46] LABS: ACANTHOCYTES 1+; COMPLETE YES; ECHINOCYTES 2+; IG% 0.1 %; LYMPH % 2.3 %; LYMPH ABS # 0.22 K/uL (1.2-3.4); MONO % 0.6 %
[2016-06-29 06:52] LABS: BUN/CREATININE RATIO 36.7 (10-20); CALCIUM 8.7 mg/dl (8.5-10.1); CREATININE 2.9 mg/dl (0.60-1.40); POTASSIUM 4.9 mmol/L (3.5-5.1)
[2016-06-29] MEDS: INSULIN ASPART 100 UNITS/ML 3 ML PEN SC SCH ×4 (07:00→21:00)
[2016-06-29 07:15] VITALS: BP 114/60; PULSE 72; O2SAT 94
[2016-06-29] MEDS ORDERED: METF1000 PO (08:39)
--- NOTE | 2016-06-29 08:46 | Pharmacy Progress Note ---
Glycemic Control: Progress Nt Date of Service Jun 29, 2016. Scope Glycemic Pharmacist consulted by Dr Kruger on 06/27/16 for glycemic control and to write orders per [facility] inpatient glycemic control protocol. Objective Accuchecks BSG (last 24hrs): Test 06/28/16 10:59 06/29/16 05:56 Bedside Glucose 88 mg/dl (70-99) Random Glucose 106 mg/dl (70-99) Laboratory Data (last 24hrs) Test 06/29/16 05:56 Anion Gap 12.0 mmol/L BUN/Creatinine Ratio 36.7 Blood Urea Nitrogen 106 mg/dl Creatinine 2.90 mg/dl Potassium Level 4.9 mmol/L Sodium Level 139 mmol/L White Blood Count 9.46 K/uL Red Blood Count 3.31 M/uL Hemoglobin 11.0 g/dL Hematocrit 31.1 % Mean Corpuscular Volume 94.0 fL Mean Corpuscular Hemoglobin 33.2 pg Mean Corpuscular Hemoglobin Concent 35.4 g/dl Platelet Count 156 K/uL Mean Platelet Volume 11.4 fL Neutrophils (%) (Auto) 97.0 % Lymphocytes (%) (Auto) 2.3 % Monocytes (%) (Auto) 0.6 % Eosinophils (%) (Auto) 0.0 % Basophils (%) (Auto) 0.0 % Neutrophils # (Auto) 9.17 K/uL Lymphocytes # (Auto) 0.22 K/uL Monocytes # (Auto) 0.06 K/uL Eosinophils # (Auto) 0.00 K/uL Basophils # (Auto) 0.00 K/uL Recent Pertinent Medications Outpatient Anti-diabetic Regimen: * metformin 1000mg PO BID * filled as immediate release for 90 days in March 2016 per outpatient history * A1c = 6.6 % 05/29/2016 The patient is currently receiving: * Basal insulin: None at this time * Correctional Insulin: NovoLog Correction per scale AC/HS Goal Range: Low 120 mg/dL - High 160 mg/dL Correction Factor: 35 mg/dL/unit * Prandial insulin: None at this time Risk Factors for Insulin Resistance: * Steroids: * Infection: * Pressors: dobutamine gtt * IVF: * Recent Surgery * Diet: T2DM/renal * Mechanical Ventilation: Assessment & Plan ASSESSMENT: * ADA & AACE recommend a goal blood sugar range 140-180 mg/dl for the majority of critically ill & non-critically ill patients. However, more stringent targets may be selected in individual cases. 06/29/16 * 80 y/o male with history of type 2 diabetes controlled with metformin as an outpatient. * metformin on hold secondary to acute illness and SHI * Currently, NovoLog sliding scale is being used to control BSGs, however no insulin has been required. * continue to forgo both basal and carb coverage at this time * if Mr. Mcwilliams continues to require little to no insulin, may consider decreasing number of Accu-checks per day * A1c is current and shows appropriate outpatient glycemic control. PLAN FOR INPATIENT GLYCEMIC CONTROL: * Basal insulin: forgo * Correctional insulin: * continue NovoLog AC and HS - Correction factor: 35mg/dL/unit - Goal range: Increase to 140-180mg/dL per ADA recommendations * Prandial insulin: forgo * metformin: continue to hold at this time - will not resume until eating well and SHI resolved. RECOMMENDATIONS FOR DISCHARGE: * pending on renal function at this time * Please note that the plan above was derived based on current level of insulin resistance and hospital stress. These recommendations are appropriate for inpatient admission only. Plan of care upon discharge will need to be reassessed to avoid potential outpatient hypo/hyperglycemia. Thank you.
[2016-06-29] MEDS: ASPIRIN 81 MG ECTAB PO SCH (08:55)
[2016-06-29] MEDS: ATORVASTATIN 40 MG TAB PO SCH (08:55)
[2016-06-29] MEDS: CLOPIDOGREL BISULFATE 75 MG TAB PO SCH (08:55)
[2016-06-29] MEDS: CYANOCOBALAMIN 500 MCG TAB (VIT B-12) PO SCH (08:56)
[2016-06-29] MEDS: ISOSORBIDE MONONITRATE 60 MG TABCR PO SCH (08:56)
[2016-06-29] MEDS: HEPARIN SOD 5000 UNIT/0.5 ML CARP SQ SCH ×2 (08:58→21:11)
--- NOTE | 2016-06-29 09:51 | NEPHROLOGY PROGRESS NOTE ---
DATE: 06/29/2016 DATE: 06/29/2016. SUBJECTIVE: Mr. Mcwilliams says that he does not feel much better. He denies significant shortness of breath. He does say it seems as if he can breathe a bit deeper than he had. He denies having any chest pain. He has had no lightheadedness or dizziness. His appetite remains poor. However, he has had no nausea or vomiting. He has been on a dobutamine drip at 5 mcg per kilogram per hour and did get 1 dose of Lasix in albumin yesterday. He did appear to have a fair response to the Lasix and albumin putting out about 500 mL immediately after the dose. Thus far, his output exceeds his intake, but only by about 150 mL. OBJECTIVE: GENERAL: On physical exam, Mr. Mcwilliams appears as a somewhat cachectic gentleman who appears to be of about his stated age of 80. He does not appear to be in any distress, although he says that he feels cold. VITAL SIGNS: Show blood pressure of 36.5 axillary, his blood pressure 106/60 with a pulse of 74 and basically regular but with an occasional extrasystole on the monitor. Respiratory rate is 17-20, his pulse ox 93% to 95% on room air. SKIN: Turgor seems about normal. There is no rash or infiltrative skin disease. He does have a few small scattered ecchymoses. LYMPHATICS: Show no palpable adenopathy. HEAD: Normal. He has some temporal wasting associated with his weight loss. EYES: Grossly normal. There is no conjunctival icterus. Pupils are equal and reactive to light. EARS, NOSE, MOUTH AND THROAT: Unremarkable. His oral mucous membranes seem moist. NECK: Shows minimal jugular venous distention with him lying at about 60-70 degrees. I hear no definite carotid bruit. There is no thyromegaly. CHEST: Shows diminished breath sounds throughout. Breath sounds are diminished at the bases. His chest wall again shows a displaced right clavicular head at the sternoclavicular joint. CARDIAC EXAMINATION: Shows a regular rhythm, S1 and S2 are normal. I hear no definite gallop sounds. He has a grade 1-2 systolic ejection murmur heard best at the left sternal border and base and to a lesser extent at the apex. ABDOMEN: Nontender. There is no definite organomegaly or mass. EXTREMITIES: Continue to show 3+ lower extremity edema below the knees and about 2+ edema from the knees to the hips. Peripheral pulses are somewhat diminished but they are palpable. NEUROLOGIC: Exam shows him to be globally weak without lateralizing change. PERTINENT LABORATORY WORK: From today shows a white count of 9,460 with 97% neutrophils, 2.3% lymphocytes, 0.6% monocytes. His hemoglobin is 11.0 with a hematocrit of 31.1, his platelet count 156,000. His clinical chemistries show a sodium of 130 mmol/L, potassium 4.6 mmol/L, chloride 104 mmol/L, and CO2 content 23 mEq/L. His BUN is 106 and his creatinine 2.9. Blood sugars vary from 88-106. The formal report on his echocardiogram is noted. 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 That may take a few days. RECOMMENDATIONS: No change for now. Continue with his dobutamine drip. We will leave it up to Dr. Boudreaux as to the rate of that drip. I will continue with once daily Lasix and albumin. Although he has not been febrile, he does complain of being cold. His white count is normal, but significantly shifted to the left. Although I think it is unlikely and simply chasing an abnormal laboratory test it may be worthwhile to do 2 blood cultures as well as urine culture. No other immediate recommendations.
[2016-06-29 11:33] VITALS: BP 110/51; PULSE 72; O2SAT 92
[2016-06-29] MEDS: DOBUTamine / D5W 500 MG IV PRN (12:33)
--- NOTE | 2016-06-29 12:45 | Hospitalist Progress Note ---
Hospitalist Progress Note Date of Service Jun 29, 2016. Subjective Pt evaluation today including: conversation w/ patient, conversation w/ family , physical exam, lab review, review of inpatient medication list PO Intake: appetite is poor Voiding: no voiding problems Pt OOB to chair today. Family says he's more awake today. He says he feels "about the same" as yesterday and that he has no strength in his legs Objective Vital Signs Date Time Temp Pulse Resp B/P Pulse Ox O2 Delivery O2 Flow Rate FiO2 06/29/16 11:33 72 20 110/51 92 Room Air 06/29/16 08:00 Room Air 06/29/16 07:15 72 20 114/60 94 Room Air 06/29/16 04:24 36.5 74 17 106/60 95 Room Air 06/29/16 04:00 Room Air 06/28/16 23:59 CPAP 06/28/16 23:44 36.4 69 19 105/57 94 Room Air 06/28/16 20:05 36.5 66 18 97/52 93 06/28/16 20:00 Room Air 06/28/16 16:00 Room Air 06/28/16 15:46 36.7 64 16 95/51 94 Room Air Physical Exam General Appearance: no apparent distress Eyes: sclerae normal Respiratory/Chest: lungs clear, no respiratory distress Cardiovascular: regular rate, rhythm Abdomen: non tender, soft Extremities: no pedal edema Neurologic/Psychiatric: alert, oriented x 3 Skin: warm/dry Laboratory Results Last 24 Hours Test 06/28/16 16:02 06/28/16 20:19 06/28/16 20:45 06/29/16 05:56 Bedside Glucose 94 mg/dl 100 mg/dl Urine Color YELLOW Urine Appearance CLOUDY Urine pH 5.0 Urine Specific [place] 1.008 Urine Protein TRACE Urine Glucose (UA) NEG Urine Ketones NEG Urine Occult Blood 1+ Urine Nitrite NEG Urine Bilirubin NEG Urine Urobilinogen NEG Urine Leukocyte Esterase NEG Urine WBC (Auto) 1-5 /hpf Urine RBC (Auto) 0-4 /hpf Urine Hyaline Casts (Auto) 1-5 /lpf Urine Epithelial Cells (Auto) 10-20 /lpf Urine Bacteria (Auto) NEG Urine Pathogenic Casts 1-5 GRANULAR CASTS /lpf Urine Yeast (Auto) White Blood Count 9.46 K/uL Red Blood Count 3.31 M/uL Hemoglobin 11.0 g/dL Hematocrit 31.1 % Mean Corpuscular Volume 94.0 fL Mean Corpuscular Hemoglobin 33.2 pg Mean Corpuscular Hemoglobin Concent 35.4 g/dl Platelet Count 156 K/uL Mean Platelet Volume 11.4 fL Neutrophils (%) (Auto) 97.0 % Lymphocytes (%) (Auto) 2.3 % Monocytes (%) (Auto) 0.6 % Eosinophils (%) (Auto) 0.0 % Basophils (%) (Auto) 0.0 % Neutrophils # (Auto) 9.17 K/uL Lymphocytes # (Auto) 0.22 K/uL Monocytes # (Auto) 0.06 K/uL Eosinophils # (Auto) 0.00 K/uL Basophils # (Auto) 0.00 K/uL RDW Standard Deviation 55.3 fL RDW Coefficient of Variation 16.0 % Immature Granulocyte % (Auto) 0.1 % Immature Granulocyte # (Auto) 0.01 K/uL Echinocytes 2+ Acanthocytes 1+ Sodium Level 139 mmol/L Potassium Level 4.9 mmol/L Chloride Level 104 mmol/L Carbon Dioxide Level 23 mmol/L Anion Gap 12.0 mmol/L Blood Urea Nitrogen 106 mg/dl Creatinine 2.90 mg/dl Est Creatinine Clear Calc Drug Dose 18.8 ml/min Estimated GFR () 22.6 Estimated GFR (Non- 19.5 BUN/Creatinine Ratio 36.7 Random Glucose 106 mg/dl Calcium Level 8.7 mg/dl Test 06/29/16 06:20 06/29/16 10:43 Bedside Glucose 117 mg/dl 110 mg/dl Assessment and Plan (1) Acute on chronic systolic (congestive) heart failure Assessment & Plan: Dobutamine per Cardio. Diuretics per Nephro. Watch renal function closely. (2) Acute on chronic renal failure Assessment & Plan: Likely cardiorenal. Will monitor Cr trend while on dobutamine and diuretics. (3) Decubitus ulcer of sacral region Assessment & Plan: Wound care, encourage activity, frequent repositioning, nutrition supplements (4) Protein calorie malnutrition Assessment & Plan: Appetite poor. Encouraged increased PO intake. Continue supplements. (5) CAD (coronary artery disease) Assessment & Plan: On ASA, Plavix, nitrate, statin. BB and Ranexa held due to low output HF (6) DM2 (diabetes mellitus, type 2) Assessment & Plan: Pharm managing sliding scale. Well controlled. (7) Troponin level elevated Assessment & Plan: In setting of renal failure. Pattern not consistent with ACS. Continued [facility] stay due to: multiple IV medications needed
[2016-06-29 16:21] VITALS: BP 105/52; PULSE 70; TEMP 36.4; O2SAT 96
[2016-06-29 16:56] LABS: ISTAT ARTERIAL BLOOD GAS HCO3 23 meq/L (19-24); ISTAT ARTERIAL BLOOD GAS PCO2 34 mmHg (35-46); ISTAT ARTERIAL BLOOD GAS PO2 < 32 mmHg (80-95); ISTAT ARTERIAL BLOOD GAS pH 7.43 (7.35-7.45); ISTAT CARBON DIOXIDE 24 mEq/l (24-31)
[2016-06-29 16:56] LABS: ISTAT ARTERIAL BLOOD GAS HCO3 22 meq/L (19-24); ISTAT ARTERIAL BLOOD GAS PCO2 34 mmHg (35-46); ISTAT ARTERIAL BLOOD GAS PO2 < 32 mmHg (80-95); ISTAT ARTERIAL BLOOD GAS pH 7.42 (7.35-7.45); ISTAT CARBON DIOXIDE 23 mEq/l (24-31)
[2016-06-29] MEDS: ALBUMIN 25% 50 ML with FUROSEMIDE INJ 40 MG IV SCH ×2 (17:22)
[2016-06-29] MEDS: BOOST GLUCOSE CONTROL PO SCH (17:24)
--- NOTE | 2016-06-29 17:49 | Cardiac Catheterization ---
Procedure Note Procedure Date Jun 29, 2016. Pre-Procedure Diagnosis Cardiomyopathy AUC Score n/a Post-Procedure Diagnosis Elevated Intracardiac Pressures Procedure(s) Performed Right Heart Cath Delinquent Account Clerk Dr. Boudreaux Greens Picker(s) Leatha Estimated Blood Loss 5 Summary of Findings Right Heart Catheterization via right brachial vein On 5 mcg/kg/min Dobutamine RA 12 RV 45/20 PA 55/23/37 Wedge 20 PaSat 58 SWATHI/CI 4.2/2.4 TCO/CI 3.4/2.0 Dobutamine increased to 10 mcg PaSat 62 Summary: -Elevated biventricular filling pressures -Moderate pulmonary hypertension -Reduced cardiac output on 5mcg Dobutamine Recommendations: - Dobutamine increased to 10mcg - Continue diuresis per nephrology Hemodynamics Rest Ao: n/a Final Ao: n/a Recommendations Medical therapy and/or Counseling Specimens None Radiation Exposure (mGy) 41 Contrast (mls) none Fluids (cc crystalloids) none Drains none Anesthesia none Procedural Complication(s) None Disposition PCU ACC Data Cardiac Status Clinical evaluation leading to the procedure Diagnostic Physician's Name: Emmanuel Boudreaux MD Intraprocedure Events Significant Dissection: No Perforation: No
--- NOTE | 2016-06-29 18:00 | Cardiology Follow-Up ---
Subjective Subjective Date of Service: Jun 29, 2016. Pt evaluation today including: conversation w/ patient, conversation w/ family , physical exam, chart review, lab review, review of studies, conversation w/ quantitative consultant, review of inpatient medication list Additional Details: Patient sleepy. Pain over sacrum. Denies chest pain, dyspnea. No other new complaints. No events on telemetry Problem List Medical Problems: (1) Acute renal failure Status: Acute (2) Anasarca Status: Acute (3) Pulmonary edema Status: Acute (4) Troponin level elevated Status: Acute Review of Systems Constitutional: No chills, No fever Respiratory: + cough, + sputum Cardiac: + edema, No chest pain, No orthopnea Abdomen: + pain, + problem reported (decreased appetite) Neurologic: No numbness/tingling, No weakness Heme: No abnormal bleeding/bruising Endo: + fatigue Skin: No new/changing skin lesions Objective Vital Signs Last Vital Signs Documentation Date Time Temp Pulse Resp B/P Pulse Ox O2 Delivery O2 Flow Rate FiO2 06/29/16 16:59 Room Air 06/29/16 16:49 80 16 107/64 94 06/29/16 16:21 36.4 06/28/16 04:00 2.0 Physical Exam: General Appearance: no apparent distress ENT: hearing grossly normal Respiratory/Chest: no respiratory distress, + pertinent finding (Decreased breath sounds at bases) Cardiovascular: regular rate, rhythm, + JVD, + systolic murmur (2/6 at apex), + pertinent finding (2-3+ edema to thighs) Abdomen: non tender, soft Neurologic/Psychiatric: alert, oriented x 3 Skin: warm/dry Assessment and Plan 1. Acute systolic/low output heart failure 2. Severe multivessel CAD 3. Acute renal failure Limited urine output/mild increase in SCr with Dobutamine/Lasix yesterday and this AM. RHC done to assess filling pressures/cardiac output on inotropes--> Left and right sided filling pressures mildly elevated and cardiac output improved from echo estimates but still with reduced PaSat -- will plan to increase dobutamine to 10mcg/min/kg -- continued diuretics per renal -- beta-wilbur/DEBORAH on hold -- continue ASA/plavix/statin -- long-term poor candidate for additional revascularization or advanced hemodynamic support Continued [facility] stay due to: multiple IV medications needed Medications: Current Inpatient Medications Medications (Trade) Dose Ordered Sig/Zurdo Route Start Time Stop Time Status Last Admin Dose Admin Heparin Sodium (Porcine) (Heparin Sq 5000 Unit/0.5ml) 5,000 unit Q12 SQ 06/28/16 09:00 07/28/16 08:59 06/29/16 08:58 5,000 UNIT Acetaminophen (Tylenol Tab) 650 mg Q4H PRN PO 06/27/16 19:15 07/27/16 19:14 Ondansetron HCl (Zofran Inj) 4 mg Q6H PRN IV 06/27/16 19:15 07/27/16 19:14 Nitroglycerin (Nitrostat Tab) 0.4 mg UD PRN SL 06/27/16 19:15 07/27/16 19:14 Polyethylene (Miralax Powder Packet) 17 gm DAILY PRN PO 06/27/16 19:15 07/27/16 19:14 Aspirin (Ecotrin Tab) 81 mg QAM PO 06/28/16 09:00 07/28/16 08:59 06/29/16 08:55 81 MG Atorvastatin Calcium (Lipitor Tab) 80 mg QAM PO 06/28/16 09:00 07/28/16 08:59 06/29/16 08:55 80 MG Clopidogrel Bisulfate (plAVix TAB) 75 mg QAM PO 06/28/16 09:00 07/28/16 08:59 06/29/16 08:55 75 MG Cyanocobalamin (Vitamin B-12 Tab) 500 mcg DAILY PO 06/28/16 09:00 07/28/16 08:59 06/29/16 08:56 500 MCG Isosorbide Mononitrate (Imdur Ext Rel Tab) 60 mg QAM PO 06/28/16 09:00 07/28/16 08:59 06/29/16 08:56 60 MG Insulin Aspart (novoLOG ASPART) SLIDING SCALE G... ACHS SC 06/27/16 21:00 07/27/16 20:59 Miscellaneous Information (Consult Glycemic Management Pharmacy) 1 ea UD PRN N/A 06/27/16 19:55 07/27/16 19:54 Glucose (Glucose 40% Gel) 15-30 GRAMS 15 GRAMS... UD PRN PO 06/27/16 20:30 07/27/16 20:29 Glucose (Glucose Chew Tab) 4-8 Tablets 4 Tabl... UD PRN PO 06/27/16 20:30 07/27/16 20:29 Dextrose (Dextrose 50% 50ML Syringe) 25-50ML OF 50% DW IV FOR... UD PRN IV 06/27/16 20:30 07/27/16 20:29 Glucagon 1 mg 1 mg UD PRN SQ 06/27/16 20:30 07/27/16 20:29 Furosemide 40 mg/ Albumin Human 54 ml @ 54 mls/hr DAILY@1600 IV 06/28/16 16:00 06/30/16 16:59 06/29/16 17:22 54 MLS/HR Dobutamine HCl (DOBUTamine / D5W) 250 ml @ 0 mls/hr Q0M PRN IV 06/28/16 12:00 07/28/16 11:59 06/29/16 12:33 10.1 MLS/HR Enteral Nutritional Formula (Boost Glucose Control) 1 can QDD PO 06/28/16 16:45 07/28/16 16:44 Lab Results: 06/29/16 05:56 Red Blood Count 3.31, Mean Corpuscular Volume 94.0, Mean Corpuscular Hemoglobin 33.2, Mean Corpuscular Hemoglobin Concent 35.4, Mean Platelet Volume 11.4, Neutrophils (%) (Auto) 97.0, Lymphocytes (%) (Auto) 2.3, Monocytes (%) (Auto) 0.6, Eosinophils (%) (Auto) 0.0, Basophils (%) (Auto) 0.0, Neutrophils # (Auto) 9.17, Lymphocytes # (Auto) 0.22, Monocytes # (Auto) 0.06, Eosinophils # (Auto) 0.00, Basophils # (Auto) 0.00 06/29/16 05:56 Test 06/28/16 20:45 06/29/16 05:56 06/29/16 10:43 06/29/16 16:42 Urine Color YELLOW Urine Appearance CLOUDY (CLEAR) Urine pH 5.0 (4.5-7.5) Urine Specific [place] 1.008 (1.000-1.030) Urine Protein TRACE (NEG) Urine Glucose (UA) NEG (NEG) Urine Ketones NEG (NEG) Urine Occult Blood 1+ (NEG) Urine Nitrite NEG (NEG) Urine Bilirubin NEG (NEG) Urine Urobilinogen NEG (NEG) Urine Leukocyte Esterase NEG (NEG) Urine WBC (Auto) 1-5 /hpf (0-5) Urine RBC (Auto) 0-4 /hpf (0-4) Urine Hyaline Casts (Auto) 1-5 /lpf (0-5) Urine Epithelial Cells (Auto) 10-20 /lpf (0-5) Urine Bacteria (Auto) NEG (NEG) Urine Pathogenic Casts 1-5 GRANULAR CASTS /lpf (0) Urine Yeast (Auto) (NONE PRSENT) White Blood Count 9.46 K/uL (4.8-10.8) Red Blood Count 3.31 M/uL (4.7-6.1) Hemoglobin 11.0 g/dL (14.0-18.0) Hematocrit 31.1 % (42-52) Mean Corpuscular Volume 94.0 fL (80-100) Mean Corpuscular Hemoglobin 33.2 pg (25-34) Mean Corpuscular Hemoglobin Concent 35.4 g/dl (32-36) Platelet Count 156 K/uL (130-400) Mean Platelet Volume 11.4 fL (7.4-10.4) Neutrophils (%) (Auto) 97.0 % Lymphocytes (%) (Auto) 2.3 % Monocytes (%) (Auto) 0.6 % Eosinophils (%) (Auto) 0.0 % Basophils (%) (Auto) 0.0 % Neutrophils # (Auto) 9.17 K/uL (1.4-6.5) Lymphocytes # (Auto) 0.22 K/uL (1.2-3.4) Monocytes # (Auto) 0.06 K/uL (0.11-0.59) Eosinophils # (Auto) 0.00 K/uL (0-0.5) Basophils # (Auto) 0.00 K/uL (0-0.2) RDW Standard Deviation 55.3 fL (36.4-46.3) RDW Coefficient of Variation 16.0 % (11.5-14.5) Immature Granulocyte % (Auto) 0.1 % Immature Granulocyte # (Auto) 0.01 K/uL (0.00-0.02) Echinocytes 2+ Acanthocytes 1+ Anion Gap 12.0 mmol/L (3-11) Est Creatinine Clear Calc Drug Dose 18.8 ml/min Estimated GFR () 22.6 Estimated GFR (Non- 19.5 BUN/Creatinine Ratio 36.7 (10-20) Calcium Level 8.7 mg/dl (8.5-10.1) Bedside Glucose 110 mg/dl (70-99) Bedside Blood Gas pH (LAB) 7.43 (7.35-7.45) Bedside Blood Gas pCO2 (LAB) 34 mmHg (35-46) Bedside Blood Gas pO2 (LAB) < 32 mmHg (80-95) Bedside Blood Gas HCO3 (LAB) 23 meq/L (19-24) Bedside Blood Gas Total CO2 24 mEq/l (24-31) Bedside Blood Gas Base Excess (LAB) -2.0 meq/L (-9-1.8) Bedside Blood Gas O2 Saturation 62.0 % (90-95)
[2016-06-29] MEDS ORDERED: NURSING VERBAL MED ORDER ONE (18:15)
[2016-06-29] MEDS ORDERED: AMIODARONE 150MG / 100ML D5W ONE (18:29)
[2016-06-29 20:00] VITALS: O2SAT 92
[2016-06-29 20:25] VITALS: BP 108/56; PULSE 118; TEMP 36.4; O2SAT 92
[2016-06-30] VITALS (8 sets, daily range): BP systolic 83–102; BP diastolic 52–58; PULSE 97–114; TEMP 35.7–36.4; O2SAT 93–99
[2016-06-30 06:30] LABS: HEMATOCRIT 30.9 % (42-52); MEAN CELL VOLUME 92.5 fL (80-100); MEAN CORPUSCULAR HGB CONC 34.6 g/dl (32-36); MEAN PLATELET VOLUME 11.7 fL (7.4-10.4); PLATELET COUNT 146 K/uL (130-400); RED BLOOD COUNT 3.34 M/uL (4.7-6.1); WHITE BLOOD COUNT 7.93 K/uL (4.8-10.8)
[2016-06-30 06:58] LABS: BUN/CREATININE RATIO 36.6 (10-20); CALCIUM 8.4 mg/dl (8.5-10.1); CREATININE 3.1 mg/dl (0.60-1.40); POTASSIUM 4.6 mmol/L (3.5-5.1)
[2016-06-30] MEDS: INSULIN ASPART 100 UNITS/ML 3 ML PEN SC SCH ×2 (07:00→16:23)
[2016-06-30 07:49] LABS: COMPLETE YES; ECHINOCYTES 2+; IG% 0.3 %; LYMPH % 1.5 %; LYMPH ABS # 0.12 K/uL (1.2-3.4); MONO % 0.5 %; NEUT % 97.7 %; TOXIC GRANULATION 1+
[2016-06-30] MEDS: ASPIRIN 81 MG ECTAB PO SCH (07:57)
[2016-06-30] MEDS: ATORVASTATIN 40 MG TAB PO SCH (07:58)
[2016-06-30] MEDS: CLOPIDOGREL BISULFATE 75 MG TAB PO SCH (07:58)
[2016-06-30] MEDS: HEPARIN SOD 5000 UNIT/0.5 ML CARP SQ SCH ×2 (07:59→20:47)
[2016-06-30] MEDS: CYANOCOBALAMIN 500 MCG TAB (VIT B-12) PO SCH (07:59)
[2016-06-30] MEDS ORDERED: AMIODARONE IV BOLUS / DRIP IV STA (08:27)
--- NOTE | 2016-06-30 08:29 | Cardiology Follow-Up ---
Subjective Subjective Date of Service: Jun 30, 2016. Pt evaluation today including: conversation w/ patient, physical exam, chart review, lab review, review of studies, review of inpatient medication list Additional Details: Tele Reviewed: Flipped into Afib/flutter around 17:50 yesterday evening. Dobutamine decreased from 10--> 5 mcg. HR 100-120s overnight. Patient sleepy this morning No chest pain, palpitations or shortness of breath No other new complaints. Problem List Medical Problems: (1) Acute renal failure Status: Acute (2) Anasarca Status: Acute (3) Pulmonary edema Status: Acute (4) Troponin level elevated Status: Acute Review of Systems Constitutional: No chills, No fever Respiratory: + cough, + sputum Cardiac: + edema, No chest pain, No orthopnea Abdomen: + problem reported (decreased appetite), No pain Neurologic: No numbness/tingling, No weakness Heme: No abnormal bleeding/bruising Endo: + fatigue Skin: No new/changing skin lesions Objective Vital Signs Last Vital Signs Documentation Date Time Temp Pulse Resp B/P Pulse Ox O2 Delivery O2 Flow Rate FiO2 06/30/16 04:15 36.4 111 14 83/53 93 Nasal Cannula 1.5 Physical Exam: General Appearance: no apparent distress, + thin, + pertinent finding (sleepy, chronically ill appeariing) ENT: hearing grossly normal Respiratory/Chest: no respiratory distress, + pertinent finding (Distant heart sounds. Irregularly irregular) Cardiovascular: + JVD, + irregularly irregular, + pertinent finding (2+ LE edema - slightly improved from admission.) Abdomen: non tender, soft Extremities: + swelling Neurologic/Psychiatric: alert, oriented x 3 Skin: warm/dry Assessment and Plan 1. Acute systolic/low output heart failure 2. AFib with RVR 3. Acute renal failure 4. Severe multivessel CAD Worsening renal function, limited urine output despite diuretics, inotropes New afib + rvr overnight and new relative hypotension. -- Hold AM diuretics for now --> further decision on diuretics today per Dr. Rosenthal -- Continue dobutamine at 5 mcg currently --> if improved rate control plan to try and increase back to 7.5 mcg later today -- D/c Imdur -- Start Amiodarone drip -- Heparin drip tomorrow if remains in Afib -- Continue ASA/Plavix and statin -- long-term poor candidate for additional revascularization or advanced hemodynamic support Continued [facility] stay due to: multiple IV medications needed Medications: Current Inpatient Medications Medications (Trade) Dose Ordered Sig/Zurdo Route Start Time Stop Time Status Last Admin Dose Admin Heparin Sodium (Porcine) (Heparin Sq 5000 Unit/0.5ml) 5,000 unit Q12 SQ 06/28/16 09:00 07/28/16 08:59 06/30/16 07:59 5,000 UNIT Acetaminophen (Tylenol Tab) 650 mg Q4H PRN PO 06/27/16 19:15 07/27/16 19:14 Ondansetron HCl (Zofran Inj) 4 mg Q6H PRN IV 06/27/16 19:15 07/27/16 19:14 Nitroglycerin (Nitrostat Tab) 0.4 mg UD PRN SL 06/27/16 19:15 07/27/16 19:14 Polyethylene (Miralax Powder Packet) 17 gm DAILY PRN PO 06/27/16 19:15 07/27/16 19:14 Aspirin (Ecotrin Tab) 81 mg QAM PO 06/28/16 09:00 07/28/16 08:59 06/30/16 07:57 81 MG Atorvastatin Calcium (Lipitor Tab) 80 mg QAM PO 06/28/16 09:00 07/28/16 08:59 06/30/16 07:58 80 MG Clopidogrel Bisulfate (plAVix TAB) 75 mg QAM PO 06/28/16 09:00 07/28/16 08:59 06/30/16 07:58 75 MG Cyanocobalamin (Vitamin B-12 Tab) 500 mcg DAILY PO 06/28/16 09:00 07/28/16 08:59 06/30/16 07:59 500 MCG Isosorbide Mononitrate (Imdur Ext Rel Tab) 60 mg QAM PO 06/28/16 09:00 07/28/16 08:59 06/29/16 08:56 60 MG Insulin Aspart (novoLOG ASPART) SLIDING SCALE G... ACHS SC 06/27/16 21:00 07/27/16 20:59 Miscellaneous Information (Consult Glycemic Management Pharmacy) 1 ea UD PRN N/A 06/27/16 19:55 07/27/16 19:54 Glucose (Glucose 40% Gel) 15-30 GRAMS 15 GRAMS... UD PRN PO 06/27/16 20:30 07/27/16 20:29 Glucose (Glucose Chew Tab) 4-8 Tablets 4 Tabl... UD PRN PO 06/27/16 20:30 07/27/16 20:29 Dextrose (Dextrose 50% 50ML Syringe) 25-50ML OF 50% DW IV FOR... UD PRN IV 06/27/16 20:30 07/27/16 20:29 Glucagon 1 mg 1 mg UD PRN SQ 06/27/16 20:30 07/27/16 20:29 Furosemide 40 mg/ Albumin Human 54 ml @ 54 mls/hr DAILY@1600 IV 06/28/16 16:00 06/30/16 16:59 06/29/16 17:22 54 MLS/HR Dobutamine HCl (DOBUTamine / D5W) 250 ml @ 0 mls/hr Q0M PRN IV 06/28/16 12:00 07/28/16 11:59 06/29/16 12:33 10.1 MLS/HR Enteral Nutritional Formula (Boost Glucose Control) 1 can QDD PO 06/28/16 16:45 07/28/16 16:44 Lab Results: 06/30/16 06:02 Red Blood Count 3.34, Mean Corpuscular Volume 92.5, Mean Corpuscular Hemoglobin 32.0, Mean Corpuscular Hemoglobin Concent 34.6, Mean Platelet Volume 11.7, Neutrophils (%) (Auto) 97.7, Lymphocytes (%) (Auto) 1.5, Monocytes (%) (Auto) 0.5, Eosinophils (%) (Auto) 0.0, Basophils (%) (Auto) 0.0, Neutrophils # (Auto) 7.75, Lymphocytes # (Auto) 0.12, Monocytes # (Auto) 0.04, Eosinophils # (Auto) 0.00, Basophils # (Auto) 0.00 06/30/16 06:02 Test 06/29/16 16:42 06/30/16 06:02 06/30/16 06:53 Bedside Blood Gas pH (LAB) 7.43 (7.35-7.45) Bedside Blood Gas pCO2 (LAB) 34 mmHg (35-46) Bedside Blood Gas pO2 (LAB) < 32 mmHg (80-95) Bedside Blood Gas HCO3 (LAB) 23 meq/L (19-24) Bedside Blood Gas Total CO2 24 mEq/l (24-31) Bedside Blood Gas Base Excess (LAB) -2.0 meq/L (-9-1.8) Bedside Blood Gas O2 Saturation 62.0 % (90-95) White Blood Count 7.93 K/uL (4.8-10.8) Red Blood Count 3.34 M/uL (4.7-6.1) Hemoglobin 10.7 g/dL (14.0-18.0) Hematocrit 30.9 % (42-52) Mean Corpuscular Volume 92.5 fL (80-100) Mean Corpuscular Hemoglobin 32.0 pg (25-34) Mean Corpuscular Hemoglobin Concent 34.6 g/dl (32-36) Platelet Count 146 K/uL (130-400) Mean Platelet Volume 11.7 fL (7.4-10.4) Neutrophils (%) (Auto) 97.7 % Lymphocytes (%) (Auto) 1.5 % Monocytes (%) (Auto) 0.5 % Eosinophils (%) (Auto) 0.0 % Basophils (%) (Auto) 0.0 % Neutrophils # (Auto) 7.75 K/uL (1.4-6.5) Lymphocytes # (Auto) 0.12 K/uL (1.2-3.4) Monocytes # (Auto) 0.04 K/uL (0.11-0.59) Eosinophils # (Auto) 0.00 K/uL (0-0.5) Basophils # (Auto) 0.00 K/uL (0-0.2) RDW Standard Deviation 54.1 fL (36.4-46.3) RDW Coefficient of Variation 16.0 % (11.5-14.5) Immature Granulocyte % (Auto) 0.3 % Immature Granulocyte # (Auto) 0.02 K/uL (0.00-0.02) Toxic Granulation 1+ Echinocytes 2+ Anion Gap 14.0 mmol/L (3-11) Est Creatinine Clear Calc Drug Dose 17.8 ml/min Estimated GFR () 20.9 Estimated GFR (Non- 18.0 BUN/Creatinine Ratio 36.6 (10-20) Calcium Level 8.4 mg/dl (8.5-10.1) Bedside Glucose 128 mg/dl (70-99)
[2016-06-30] MEDS ORDERED: AMIODARONE / D5W 100 ML IV SCH (08:45)
[2016-06-30] MEDS ORDERED: AMIODARONE / D5W 200 ML IV SCH (08:55)
--- NOTE | 2016-06-30 09:07 | Pharmacy Progress Note ---
Glycemic Control: Progress Nt Date of Service Jun 30, 2016. Scope Glycemic Pharmacist consulted by Dr Kruger on 06/27/16 for glycemic control and to write orders per [facility] inpatient glycemic control protocol. Objective Accuchecks BSG (last 24hrs): Test 06/29/16 10:43 06/29/16 17:27 06/29/16 20:45 06/30/16 06:02 Bedside Glucose 110 mg/dl (70-99) 132 mg/dl (70-99) 118 mg/dl (70-99) Random Glucose 122 mg/dl (70-99) Test 06/30/16 06:53 Bedside Glucose 128 mg/dl (70-99) Laboratory Data (last 24hrs) Test 06/30/16 06:02 Anion Gap 14.0 mmol/L BUN/Creatinine Ratio 36.6 Blood Urea Nitrogen 114 mg/dl Creatinine 3.10 mg/dl Potassium Level 4.6 mmol/L Sodium Level 140 mmol/L White Blood Count 7.93 K/uL Red Blood Count 3.34 M/uL Hemoglobin 10.7 g/dL Hematocrit 30.9 % Mean Corpuscular Volume 92.5 fL Mean Corpuscular Hemoglobin 32.0 pg Mean Corpuscular Hemoglobin Concent 34.6 g/dl Platelet Count 146 K/uL Mean Platelet Volume 11.7 fL Neutrophils (%) (Auto) 97.7 % Lymphocytes (%) (Auto) 1.5 % Monocytes (%) (Auto) 0.5 % Eosinophils (%) (Auto) 0.0 % Basophils (%) (Auto) 0.0 % Neutrophils # (Auto) 7.75 K/uL Lymphocytes # (Auto) 0.12 K/uL Monocytes # (Auto) 0.04 K/uL Eosinophils # (Auto) 0.00 K/uL Basophils # (Auto) 0.00 K/uL Recent Pertinent Medications Outpatient Anti-diabetic Regimen: * metformin 1000mg PO BID * filled as immediate release for 90 days in March 2016 per outpatient history * A1c = 6.6 % 05/29/2016 The patient is currently receiving: * Basal insulin: None at this time * Correctional Insulin: NovoLog Correction per scale AC/HS Goal Range: Low 140 mg/dL - High 180 mg/dL Correction Factor: 35 mg/dL/unit * Prandial insulin: None at this time Risk Factors for Insulin Resistance: * Steroids: * Infection: * Pressors: dobutamine gtt * IVF: amiodarone gtt * Recent Surgery * Diet: T2DM/renal * Mechanical Ventilation: Assessment & Plan ASSESSMENT: * ADA & AACE recommend a goal blood sugar range 140-180 mg/dl for the majority of critically ill & non-critically ill patients. However, more stringent targets may be selected in individual cases. 06/29/16 * 80 y/o male with history of type 2 diabetes controlled with metformin as an outpatient. * metformin on hold secondary to acute illness and SHI * Currently, NovoLog sliding scale is being used to control BSGs, however no insulin has been required. * continue to forgo both basal and carb coverage at this time * if Mr. Mcwilliams continues to require little to no insulin, may consider decreasing number of Accu-checks per day * A1c is current and shows appropriate outpatient glycemic control. 06/30/16 * No insulin required over the past 48 hours * reduce Accu-check monitoring to BID decrease fingerstick burden to patient * Continue to hold metformin in lieu of poor renal function PLAN FOR INPATIENT GLYCEMIC CONTROL: * Basal insulin: forgo * Correctional insulin: * continue NovoLog BID with meals - Correction factor: 35mg/dL/unit - Goal range: 140-180mg/dL per ADA recommendations * Prandial insulin: forgo * metformin: continue to hold at this time - will not resume until eating well and SHI resolved. RECOMMENDATIONS FOR DISCHARGE: * pending on renal function at this time * Please note that the plan above was derived based on current level of insulin resistance and hospital stress. These recommendations are appropriate for inpatient admission only. Plan of care upon discharge will need to be reassessed to avoid potential outpatient hypo/hyperglycemia. Thank you.
--- NOTE | 2016-06-30 11:09 | NEPHROLOGY PROGRESS NOTE ---
DATE: 06/30/2016 SUBJECTIVE: Events of yesterday are noted. He underwent a right heart catheterization done by Dr. Boudreaux. On 5 mcg per kilogram per minute of dopamine, he was noted to have elevated biventricular filling pressures with moderate pulmonary hypertension. Even on dobutamine, his cardiac output was still low. His dobutamine was increased to 10 mcg per kilogram per minute. Overnight, he apparently went into atrial fibrillation/flutter. Dobutamine has been reduced back to 5 mcg per kilogram per minute and he was started on dobutamine. Mr. Mcwilliams says that he is generally weak and tired. However, he denies having problems with chest pain and denies feeling short of breath. His appetite remains poor. OBJECTIVE: GENERAL: On physical exam, Mr. Mcwilliams appears as a chronically ill gentleman of about his stated age of 80. He is quite sleepy, but arousable and speaks only in short sentences. He does seem slightly confused. VITAL SIGNS: His blood pressure at the current time is 93/53, his pulse 114 and irregular, respiratory rate 20, and his pulse ox 96% on 2 liters of oxygen via nasal cannula. He is afebrile. SKIN: Shows normal skin turgor. He has no rash or infiltrative skin disease. He does have some minimal ecchymoses around the right eye, particularly the right upper lid. There is no other rash or infiltrative skin disease. LYMPHATICS: Show no palpable lymphadenopathy. HEAD: Grossly normal. He has temporal wasting associated with his weight loss. EYES: Show the changes in the right eye described above. He has no conjunctival icterus. Pupils are equal and reactive to light. EARS, NOSE, MOUTH AND THROAT: Unremarkable. Oral mucous membranes are moist. NECK: Shows minimal jugular venous distention lying at about 45 degrees. He does have a positive hepatojugular reflux. There is no carotid bruit and there is no thyromegaly. CHEST: Shows diminished breath sounds throughout, particularly at the bases. Chest wall again shows a displaced right clavicular head at the sternoclavicular joint. CARDIAC: Shows an irregular rhythm. No definite gallops are heard. He has a grade 1-2/6 systolic ejection murmur at the left sternal border base and apex. ABDOMEN: Slightly tender in the right upper quadrant. His liver is difficult to assess in terms of size. I do not feel any splenomegaly. Bowel sounds are present. He has no abdominal bruits. EXTREMITIES: Continue to show 2-3+ edema below the knees and 1-2+ edema from the knees to the hips. Peripheral pulses are diminished. NEUROLOGIC: Shows him to be globally weak, but he has no lateralizing changes. His intake and output shown to be only minus about 134 mL since his admission. PERTINENT LABORATORY WORK: From today shows a white count of 7930 with 97.7% neutrophils, 1.5% lymphocytes, and 0.5% monocytes. His hemoglobin is 10.7, hematocrit 30.9, and his platelet count 146,000. His prothrombin time is 14.6 with an INR of 1.3. His PTT 32.4 with PTTR of 1.2. Clinical chemistries show a sodium of 140 mmol/L, potassium 4.6 mmol/L, chloride of 104 mmol/L, and CO2 content of 22 mmol/L. His BUN is 114 and his creatinine 3.10. Blood sugars range from 110 to 132. His serum calcium is 8.4. Serum albumin not measured today. ASSESSMENT: Severe heart failure with reduced cardiac output even on dobutamine. His course is now complicated by atrial flutter/fibrillation. Although, the atrial flutter/fibrillation appeared with an increase in his dobutamine, one would wonder whether or not paroxysmal atrial fibrillation might have contributed to a downward spiral in his health because of worsening congestive heart failure. PLAN: Continue dobutamine at the current rate. Amiodarone has been added. For now, given the worsening of his prerenal azotemia, I would hold his Lasix and albumin. Although, I considered giving him albumin. I do not think I would do this with already present elevated biventricular pressures. Certainly, we can resume diuretics when his BUN and creatinine improved. I have discussed the situation with Dr. Chaz Chance, who is a job checker bridge/structure inspection team leader for me this weekend. He is aware of the patient's clinical status.
[2016-06-30] MEDS: DOBUTamine / D5W 500 MG IV PRN (12:06)
--- NOTE | 2016-06-30 13:24 | Hospitalist Progress Note ---
Hospitalist Progress Note Date of Service Jun 30, 2016. Subjective Pt evaluation today including: conversation w/ patient, conversation w/ family , physical exam, lab review, review of studies, review of inpatient medication list Pain: denies Patient more lethargic today. Lasix was held this AM because of worsening Cr. Yesterday, he underwent RHC which showed continued low output while on 5mcg/kg/ min dobutamine. This was increased to 10mcg/kg/min, but he went into rapid afib in the evening. This was decreased back to 5 and he has been started on a amiodarone drip. He remains in a fib with a HR 100-110s. Medications Current Inpatient Medications Medications (Trade) Dose Ordered Sig/Zurdo Route Start Time Stop Time Status Last Admin Dose Admin Heparin Sodium (Porcine) (Heparin Sq 5000 Unit/0.5ml) 5,000 unit Q12 SQ 06/28/16 09:00 07/28/16 08:59 06/30/16 07:59 5,000 UNIT Acetaminophen (Tylenol Tab) 650 mg Q4H PRN PO 06/27/16 19:15 07/27/16 19:14 Ondansetron HCl (Zofran Inj) 4 mg Q6H PRN IV 06/27/16 19:15 07/27/16 19:14 Nitroglycerin (Nitrostat Tab) 0.4 mg UD PRN SL 06/27/16 19:15 07/27/16 19:14 Polyethylene (Miralax Powder Packet) 17 gm DAILY PRN PO 06/27/16 19:15 07/27/16 19:14 Aspirin (Ecotrin Tab) 81 mg QAM PO 06/28/16 09:00 07/28/16 08:59 06/30/16 07:57 81 MG Atorvastatin Calcium (Lipitor Tab) 80 mg QAM PO 06/28/16 09:00 07/28/16 08:59 06/30/16 07:58 80 MG Clopidogrel Bisulfate (plAVix TAB) 75 mg QAM PO 06/28/16 09:00 07/28/16 08:59 06/30/16 07:58 75 MG Cyanocobalamin (Vitamin B-12 Tab) 500 mcg DAILY PO 06/28/16 09:00 07/28/16 08:59 06/30/16 07:59 500 MCG Miscellaneous Information (Consult Glycemic Management Pharmacy) 1 ea UD PRN N/A 06/27/16 19:55 07/27/16 19:54 Glucose (Glucose 40% Gel) 15-30 GRAMS 15 GRAMS... UD PRN PO 06/27/16 20:30 07/27/16 20:29 Glucose (Glucose Chew Tab) 4-8 Tablets 4 Tabl... UD PRN PO 06/27/16 20:30 07/27/16 20:29 Dextrose (Dextrose 50% 50ML Syringe) 25-50ML OF 50% DW IV FOR... UD PRN IV 06/27/16 20:30 07/27/16 20:29 Glucagon 1 mg 1 mg UD PRN SQ 06/27/16 20:30 07/27/16 20:29 Furosemide 40 mg/ Albumin Human 54 ml @ 54 mls/hr DAILY@1600 IV 06/28/16 16:00 Future Hold 06/29/16 17:22 54 MLS/HR Dobutamine HCl (DOBUTamine / D5W) 250 ml @ 0 mls/hr Q0M PRN IV 06/28/16 12:00 07/28/16 11:59 06/30/16 12:06 10 MLS/HR Enteral Nutritional Formula 1 can 1 can QDD PO 06/28/16 16:45 07/28/16 16:44 Amiodarone HCL/ Dextrose 200 ml @ 33.3 mls/hr Q6H1M IV 06/30/16 08:55 06/30/16 14:55 06/30/16 08:42 33.3 MLS/HR Amiodarone HCL/ Dextrose (Nexterone / D5w) 200 ml @ 16.7 mls/hr [id number] IV 06/30/16 14:55 07/30/16 14:54 Insulin Aspart (novoLOG ASPART) SLIDING SCALE G... BIDM SC 06/30/16 16:45 07/30/16 16:44 Objective Vital Signs Date Time Temp Pulse Resp B/P Pulse Ox O2 Delivery O2 Flow Rate FiO2 06/30/16 12:00 35.7 97 16 96/57 97 Nasal Cannula 2.0 06/30/16 12:00 Nasal Cannula 2.0 06/30/16 08:00 36.4 114 20 93/53 96 Nasal Cannula 2.0 06/30/16 08:00 Nasal Cannula 2.0 06/30/16 04:15 36.4 111 14 83/53 93 Nasal Cannula 1.5 06/30/16 04:00 94 Nasal Cannula 1.5 06/30/16 00:31 36.4 109 18 86/53 95 Nasal Cannula 2.0 06/30/16 00:01 95 Nasal Cannula 2.0 06/29/16 20:25 36.4 118 18 108/56 92 CPAP 06/29/16 20:00 92 CPAP 06/29/16 16:59 Room Air 06/29/16 16:49 80 16 107/64 94 Room Air 06/29/16 16:44 78 16 107/58 95 Room Air 06/29/16 16:21 36.4 70 15 105/52 96 Room Air Physical Exam General Appearance: no apparent distress Respiratory/Chest: no respiratory distress, + crackles Cardiovascular: + tachycardia, + irregularly irregular Abdomen: non tender, soft Extremities: + pedal edema Skin: warm/dry Laboratory Results Last 24 Hours Test 06/29/16 16:32 06/29/16 16:42 06/29/16 17:27 06/29/16 20:45 Bedside Blood Gas pH (LAB) 7.42 7.43 Bedside Blood Gas pCO2 (LAB) 34 mmHg 34 mmHg Bedside Blood Gas pO2 (LAB) < 32 mmHg < 32 mmHg Bedside Blood Gas HCO3 (LAB) 22 meq/L 23 meq/L Bedside Blood Gas Total CO2 23 mEq/l 24 mEq/l Bedside Blood Gas Base Excess (LAB) -2.0 meq/L -2.0 meq/L Bedside Blood Gas O2 Saturation 58.0 % 62.0 % Bedside Glucose 132 mg/dl 118 mg/dl Test 06/30/16 06:02 06/30/16 06:53 06/30/16 11:13 White Blood Count 7.93 K/uL Red Blood Count 3.34 M/uL Hemoglobin 10.7 g/dL Hematocrit 30.9 % Mean Corpuscular Volume 92.5 fL Mean Corpuscular Hemoglobin 32.0 pg Mean Corpuscular Hemoglobin Concent 34.6 g/dl Platelet Count 146 K/uL Mean Platelet Volume 11.7 fL Neutrophils (%) (Auto) 97.7 % Lymphocytes (%) (Auto) 1.5 % Monocytes (%) (Auto) 0.5 % Eosinophils (%) (Auto) 0.0 % Basophils (%) (Auto) 0.0 % Neutrophils # (Auto) 7.75 K/uL Lymphocytes # (Auto) 0.12 K/uL Monocytes # (Auto) 0.04 K/uL Eosinophils # (Auto) 0.00 K/uL Basophils # (Auto) 0.00 K/uL RDW Standard Deviation 54.1 fL RDW Coefficient of Variation 16.0 % Immature Granulocyte % (Auto) 0.3 % Immature Granulocyte # (Auto) 0.02 K/uL Toxic Granulation 1+ Echinocytes 2+ Sodium Level 140 mmol/L Potassium Level 4.6 mmol/L Chloride Level 104 mmol/L Carbon Dioxide Level 22 mmol/L Anion Gap 14.0 mmol/L Blood Urea Nitrogen 114 mg/dl Creatinine 3.10 mg/dl Est Creatinine Clear Calc Drug Dose 17.8 ml/min Estimated GFR () 20.9 Estimated GFR (Non- 18.0 BUN/Creatinine Ratio 36.6 Random Glucose 122 mg/dl Calcium Level 8.4 mg/dl Albumin 1.9 gm/dl Bedside Glucose 128 mg/dl 157 mg/dl Assessment and Plan (1) Acute on chronic systolic (congestive) heart failure Assessment & Plan: Dobutamine per Cardio. Diuretics per Nephro. Making poor progress. (2) Acute on chronic renal failure Assessment & Plan: Likely cardiorenal. Lasix held for rising Cr. Nephro following. (3) Decubitus ulcer of sacral region Assessment & Plan: Wound care, encourage activity, frequent repositioning, nutrition supplements (4) Protein calorie malnutrition Assessment & Plan: Appetite poor. Encouraged increased PO intake. Continue supplements. (5) CAD (coronary artery disease) Assessment & Plan: On ASA, Plavix, statin. BB, nitrate, and Ranexa held due to low output HF (6) DM2 (diabetes mellitus, type 2) Assessment & Plan: Pharm managing sliding scale. Well controlled. Continued [facility] stay due to: multiple IV medications needed Discharge planning: uncertain
[2016-06-30] MEDS: AMIODARONE / D5W 200 ML IV SCH (15:01)
[2016-06-30] MEDS: BOOST GLUCOSE CONTROL PO SCH (16:23)
[2016-07-01] VITALS (8 sets, daily range): BP systolic 80–113; BP diastolic 49–56; PULSE 98–118; TEMP 36.4–36.6; O2SAT 93–100
[2016-07-01] MEDS: AMIODARONE / D5W 200 ML IV SCH ×2 (03:08→15:01)
[2016-07-01 07:05] LABS: BUN/CREATININE RATIO 35.1 (10-20); CALCIUM 8.3 mg/dl (8.5-10.1); CREATININE 3.2 mg/dl (0.60-1.40); MAGNESIUM 2.5 mg/dl (1.8-2.4); POTASSIUM 4.5 mmol/L (3.5-5.1)
[2016-07-01] MEDS: INSULIN ASPART 100 UNITS/ML 3 ML PEN SC SCH ×2 (07:30→17:18)
[2016-07-01] MEDS: ATORVASTATIN 40 MG TAB PO SCH (09:00)
[2016-07-01] MEDS: CYANOCOBALAMIN 500 MCG TAB (VIT B-12) PO SCH (09:00)
--- NOTE | 2016-07-01 10:46 | Cardiology Follow-Up ---
Subjective Subjective Date of Service: Jul 01, 2016. Pt evaluation today including: conversation w/ patient, conversation w/ family , physical exam, chart review, lab review, review of studies, conversation w/ healthcare network pricing consultant, review of inpatient medication list Additional Details: Patient states breathing more labored today. Denies chest pain or palpitations. Discomfort from sacrum sore States "ready to go" Problem List Medical Problems: (1) Acute renal failure Status: Acute (2) Anasarca Status: Acute (3) Pulmonary edema Status: Acute (4) Troponin level elevated Status: Acute Review of Systems Constitutional: No chills, No fever Respiratory: + cough, + shortness of breath, + sputum Cardiac: + edema, No chest pain, No orthopnea Abdomen: + problem reported (decreased appetite), No pain Heme: No abnormal bleeding/bruising Endo: + fatigue Skin: No new/changing skin lesions Objective Vital Signs Last Vital Signs Documentation Date Time Temp Pulse Resp B/P Pulse Ox O2 Delivery O2 Flow Rate FiO2 07/01/16 07:51 36.5 118 29 113/54 94 Nasal Cannula 2.0 Physical Exam: General Appearance: + mild distress ENT: hearing grossly normal Neck: + JVD Respiratory/Chest: + respiratory distress, + crackles (rales at bases and anteriorly) Cardiovascular: + tachycardia, + irregularly irregular Abdomen: non tender, soft Extremities: + pertinent finding (warm, trace to 1+ edema to above ankles) Neurologic/Psychiatric: alert, oriented x 3 Skin: warm/dry Assessment and Plan 1. Acute systolic/low output heart failure 2. AFib with RVR 3. Acute renal failure 4. Severe multivessel CAD Renal function no better with holding diuretics. Appears well-perfused on exam but with worsening pulmonary congestion, labored breathing Afib persists -- HR in 100-120s on IV amio at 0.5/hr -- Discussed with Dr. Chance from nephrology --> agree with increased diuretics -- Continue current dobutamine 5 mcg for now -- Continue amio at current dose --> if HR persistently >120s would rebolus amio and increase back to 1 mg/hr -- Hold off on heparin for now while awaiting response to increased diuretics -- continue asa/plavix/statin Continued [facility] stay due to: multiple IV medications needed Discharge planning: uncertain Medications: Current Inpatient Medications Medications (Trade) Dose Ordered Sig/Zurdo Route Start Time Stop Time Status Last Admin Dose Admin Heparin Sodium (Porcine) (Heparin Sq 5000 Unit/0.5ml) 5,000 unit Q12 SQ 06/28/16 09:00 07/28/16 08:59 06/30/16 20:47 5,000 UNIT Acetaminophen (Tylenol Tab) 650 mg Q4H PRN PO 06/27/16 19:15 07/27/16 19:14 Ondansetron HCl (Zofran Inj) 4 mg Q6H PRN IV 06/27/16 19:15 07/27/16 19:14 Nitroglycerin (Nitrostat Tab) 0.4 mg UD PRN SL 06/27/16 19:15 07/27/16 19:14 Polyethylene (Miralax Powder Packet) 17 gm DAILY PRN PO 06/27/16 19:15 07/27/16 19:14 Aspirin (Ecotrin Tab) 81 mg QAM PO 06/28/16 09:00 07/28/16 08:59 06/30/16 07:57 81 MG Atorvastatin Calcium (Lipitor Tab) 80 mg QAM PO 06/28/16 09:00 07/28/16 08:59 06/30/16 07:58 80 MG Clopidogrel Bisulfate (plAVix TAB) 75 mg QAM PO 06/28/16 09:00 07/28/16 08:59 06/30/16 07:58 75 MG Cyanocobalamin (Vitamin B-12 Tab) 500 mcg DAILY PO 06/28/16 09:00 07/28/16 08:59 06/30/16 07:59 500 MCG Miscellaneous Information (Consult Glycemic Management Pharmacy) 1 ea UD PRN N/A 06/27/16 19:55 07/27/16 19:54 Glucose (Glucose 40% Gel) 15-30 GRAMS 15 GRAMS... UD PRN PO 06/27/16 20:30 07/27/16 20:29 Glucose (Glucose Chew Tab) 4-8 Tablets 4 Tabl... UD PRN PO 06/27/16 20:30 07/27/16 20:29 Dextrose (Dextrose 50% 50ML Syringe) 25-50ML OF 50% DW IV FOR... UD PRN IV 06/27/16 20:30 07/27/16 20:29 Glucagon 1 mg 1 mg UD PRN SQ 06/27/16 20:30 07/27/16 20:29 Furosemide 40 mg/ Albumin Human 54 ml @ 54 mls/hr DAILY@1600 IV 06/28/16 16:00 Future Hold 06/29/16 17:22 54 MLS/HR Dobutamine HCl (DOBUTamine / D5W) 250 ml @ 0 mls/hr Q0M PRN IV 06/28/16 12:00 07/28/16 11:59 06/30/16 12:06 10 MLS/HR Enteral Nutritional Formula 1 can 1 can QDD PO 06/28/16 16:45 07/28/16 16:44 Amiodarone HCL/ Dextrose (Nexterone / D5w) 200 ml @ 16.7 mls/hr [id number] IV 06/30/16 14:55 07/30/16 14:54 07/01/16 03:08 16.7 MLS/HR Insulin Aspart SLIDING SCALE G... BIDM SC 06/30/16 16:45 07/30/16 16:44 Furosemide/Syringe (Lasix Inj/ Syringe) 8 ml @ 4 mls/min NOW IV 07/01/16 10:30 07/31/16 10:29 UNV Lab Results: 07/01/16 06:10 Test 07/01/16 06:10 07/01/16 06:42 Anion Gap 14.0 mmol/L (3-11) Est Creatinine Clear Calc Drug Dose 17.2 ml/min Estimated GFR () 20.1 Estimated GFR (Non- 17.3 BUN/Creatinine Ratio 35.1 (10-20) Calcium Level 8.3 mg/dl (8.5-10.1) Magnesium Level 2.5 mg/dl (1.8-2.4) Bedside Glucose 159 mg/dl (70-99)
[2016-07-01] MEDS ORDERED: FUROSEMIDE INJ 80 MG in SYRINGE 0 ML IV ONE ×2 (11:00→15:30)
[2016-07-01] MEDS: ASPIRIN 81 MG ECTAB PO SCH (11:08)
[2016-07-01] MEDS: CLOPIDOGREL BISULFATE 75 MG TAB PO SCH (11:08)
[2016-07-01] MEDS: HEPARIN SOD 5000 UNIT/0.5 ML CARP SQ SCH ×2 (11:14→19:52)
--- NOTE | 2016-07-01 11:32 | Nephrology Progress Note ---
Nephrology Progress Note Date of Service Jul 01, 2016. Chief Complaint SHI/CKD Subjective No acute events overnight. Mr. Mcwilliams reports significant dyspnea at rest this morning. He was seen and evaluated with his son at the bedside. Plan of care discussed with Dr. Boudreaux. Mr. Mcwilliams reports discomfort in his back and shoulders from lying in bed. He remains very weak. Appetite is very poor. He is voiding urine without difficulty. Denies chest pain or palpitations. Review of Systems A complete review of systems was performed. Pertinent positives are noted above. All other systems are negative. Vital Signs Last 8 Hrs Date Time Temp Pulse Resp B/P Pulse Ox O2 Delivery O2 Flow Rate FiO2 07/01/16 07:51 36.5 118 29 113/54 94 Nasal Cannula 2.0 07/01/16 04:00 95 Nasal Cannula 1.5 07/01/16 03:45 36.5 98 20 100/56 95 Nasal Cannula 1.5 I & O 24-Hour Column 07/01/16 08:00 Intake Total 765 ml Output Total 250 ml Balance 515 ml Last Recorded Weight Weight (Kilograms): 67.200 Physical Exam General Appearance: + pertinent finding (cachetic, mild distress with increased work of breathing) Head: normocephalic, atraumatic, + pertinent finding (temporal wasting) Eyes: normal inspection, sclerae normal ENT: normal ENT inspection, + pertinent finding (oral mucosa slightly dry) Neck: supple, + JVD Respiratory/Chest: + decreased breath sounds, + rales Cardiovascular: no gallop, + tachycardia Abdomen/GI: non tender, soft Extremities/Musculoskelatal: normal inspection, no pedal edema Neurologic/Psych: alert, oriented x 3 Social History Smoking Status: Former smoker Marital Status: Occupation: retired Laboratory Results Past 24 Hours 07/01/16 06:10 Test 06/30/16 15:42 07/01/16 06:10 07/01/16 06:42 Bedside Glucose 170 mg/dl (70-99) 159 mg/dl (70-99) Anion Gap 14.0 mmol/L (3-11) Est Creatinine Clear Calc Drug Dose 17.2 ml/min Estimated GFR () 20.1 Estimated GFR (Non- 17.3 BUN/Creatinine Ratio 35.1 (10-20) Calcium Level 8.3 mg/dl (8.5-10.1) Magnesium Level 2.5 mg/dl (1.8-2.4) Albumin 2.0 gm/dl (3.4-5.0) Allergies Coded Allergies: No Known Allergies (Unverified , 06/27/16) Medications Current Inpatient Medications Medications (Trade) Dose Ordered Sig/Zurdo Route Start Time Stop Time Status Last Admin Dose Admin Heparin Sodium (Porcine) (Heparin Sq 5000 Unit/0.5ml) 5,000 unit Q12 SQ 06/28/16 09:00 07/28/16 08:59 07/01/16 11:14 5,000 UNIT Acetaminophen (Tylenol Tab) 650 mg Q4H PRN PO 06/27/16 19:15 07/27/16 19:14 Ondansetron HCl (Zofran Inj) 4 mg Q6H PRN IV 06/27/16 19:15 07/27/16 19:14 Nitroglycerin (Nitrostat Tab) 0.4 mg UD PRN SL 06/27/16 19:15 07/27/16 19:14 Polyethylene (Miralax Powder Packet) 17 gm DAILY PRN PO 06/27/16 19:15 07/27/16 19:14 Aspirin (Ecotrin Tab) 81 mg QAM PO 06/28/16 09:00 07/28/16 08:59 07/01/16 11:08 81 MG Atorvastatin Calcium (Lipitor Tab) 80 mg QAM PO 06/28/16 09:00 07/28/16 08:59 06/30/16 07:58 80 MG Clopidogrel Bisulfate (plAVix TAB) 75 mg QAM PO 06/28/16 09:00 07/28/16 08:59 07/01/16 11:08 75 MG Cyanocobalamin (Vitamin B-12 Tab) 500 mcg DAILY PO 06/28/16 09:00 07/28/16 08:59 06/30/16 07:59 500 MCG Miscellaneous Information (Consult Glycemic Management Pharmacy) 1 ea UD PRN N/A 06/27/16 19:55 07/27/16 19:54 Glucose (Glucose 40% Gel) 15-30 GRAMS 15 GRAMS... UD PRN PO 06/27/16 20:30 07/27/16 20:29 Glucose (Glucose Chew Tab) 4-8 Tablets 4 Tabl... UD PRN PO 06/27/16 20:30 07/27/16 20:29 Dextrose (Dextrose 50% 50ML Syringe) 25-50ML OF 50% DW IV FOR... UD PRN IV 06/27/16 20:30 07/27/16 20:29 Glucagon 1 mg 1 mg UD PRN SQ 06/27/16 20:30 07/27/16 20:29 Furosemide 40 mg/ Albumin Human 54 ml @ 54 mls/hr DAILY@1600 IV 06/28/16 16:00 Future Hold 06/29/16 17:22 54 MLS/HR Dobutamine HCl (DOBUTamine / D5W) 250 ml @ 0 mls/hr Q0M PRN IV 06/28/16 12:00 07/28/16 11:59 06/30/16 12:06 10 MLS/HR Enteral Nutritional Formula 1 can 1 can QDD PO 06/28/16 16:45 07/28/16 16:44 Amiodarone HCL/ Dextrose (Nexterone / D5w) 200 ml @ 16.7 mls/hr [id number] IV 06/30/16 14:55 07/30/16 14:54 07/01/16 03:08 16.7 MLS/HR Insulin Aspart (novoLOG ASPART) SLIDING SCALE G... BIDM SC 06/30/16 16:45 07/30/16 16:44 Impression (1) Atrial fibrillation and flutter (2) Acute on chronic renal failure (3) Acute on chronic systolic (congestive) heart failure (4) CAD (coronary artery disease) (5) DM2 (diabetes mellitus, type 2) Mr. Mcwilliams is a critically-ill, frail 80 year-old male with an ischemic cardiomyopathy who developed acute on chronic renal failure in the setting of decompensated acute on chronic systolic congestive heart failure. Clinical presentation consistent with a cardiorenal syndrome. He is suffering from dyspnea in the setting of heart failure and pulmonary edema. Presentation complicated by new atrial fibrillation/flutter. He remains on a dobutamine gtt @ 5 and amiodarone infusion. Renal function continues to decline with holding diuretics yesterday. In the setting of hypoalbuminemia, he did have some diuresis with furosemide and albumin infusion. Recommendations -- Furosemide 80 mg IV now -- Obtain renal US bedside -- Medications are appropriate for renal function -- Continue dobutamine infusion -- Encourage nutrition
--- NOTE | 2016-07-01 12:15 | Pharmacy Progress Note ---
Glycemic: Assessment & Plan Date of Service Jul 01, 2016. Assessment & Plan The patient has received no insulin for past 72 hr. BSGs ranging 122-170 mg/dl over the past 24hrs, within acceptable goal range to avoid hypoglycemia. Patient still on amiodarone and dobutamine drips mixed in D5W. Patient has poor appetite and has been refusing Boost. Reported A1c of 6.6% last month is acceptable in elderly patient. Renal function still impaired. I would not restart metformin until he is eating well and renal function has improved. Since his blood sugars have remained stable, Pharmacy will sign off. Please feel free to reconsult us if needed. Thank you.
--- NOTE | 2016-07-01 14:36 | DIAGNOSTIC IMAGING REPORT ---
ULTRASOUND KIDNEYS AND BLADDER CLINICAL HISTORY: Acute on chronic kidney disease. COMPARISON STUDY: Abdominal CT dated 12/02/2014. TECHNIQUE: Real-time, grayscale, and color flow sonography of the kidneys and bladder is performed. Images are reviewed in the transverse and longitudinal planes. FINDINGS: Kidneys: The kidneys are atrophic and echogenic consistent with medical renal disease. The right kidney measures 9.4 x 4.3 x 4.6 cm and the left kidney measures 10.2 x 6.0 x 5.1 cm. There is no hydronephrosis. No shadowing renal calculi are identified. There is no sonographic evidence of contour deforming renal mass lesion. No perinephric fluid is identified. Bladder: The bladder is decompressed around a Foreman catheter and could not be assessed. Ureteral jets could not be evaluated. Upper abdomen: There is a small volume of abdominal ascites. Bilateral pleural effusions are identified. The left pleural effusion appears septated and complex. The gallbladder is distended and filled with sludge. IMPRESSION: 1. The kidneys are atrophic and echogenic consistent with medical renal disease. There is no hydronephrosis. 2. The bladder was decompressed around a Foreman catheter and could not be evaluated. 3. Bilateral pleural effusions. 4. Abdominal ascites. 5. Biliary sludge is noted. Electronically signed by: Jaquan Aguiar M.D. 07/01/2016 2:34 PM Dictated Date/Time: 07/01/2016 2:30 PM
[2016-07-01] MEDS: DOBUTamine / D5W 500 MG IV PRN (15:00)
[2016-07-01] MEDS: BOOST GLUCOSE CONTROL PO SCH (15:18)
[2016-07-01] MEDS ORDERED: ALBUT/IPRATROP 3MG/0.5MG NEB 3 ML VIAL INH PRN (15:30)
--- NOTE | 2016-07-01 15:39 | Hospitalist Progress Note ---
Hospitalist Progress Note Date of Service Jul 01, 2016. Subjective Pt evaluation today including: conversation w/ patient, physical exam, chart review, lab review, review of studies, review of inpatient medication list feel SOB, no chest pain Objective Vital Signs Date Time Temp Pulse Resp B/P Pulse Ox O2 Delivery O2 Flow Rate FiO2 07/01/16 12:44 36.6 116 24 80/50 100 Nasal Cannula 2.0 07/01/16 12:00 Nasal Cannula 2.0 07/01/16 08:00 Nasal Cannula 2.0 07/01/16 07:51 36.5 118 29 113/54 94 Nasal Cannula 2.0 07/01/16 04:00 95 Nasal Cannula 1.5 07/01/16 03:45 36.5 98 20 100/56 95 Nasal Cannula 1.5 07/01/16 00:09 36.4 105 20 89/53 98 Nasal Cannula 2.0 07/01/16 00:01 98 Nasal Cannula 2.0 06/30/16 20:00 36.4 100 18 102/58 99 Nasal Cannula 2.0 06/30/16 20:00 99 Nasal Cannula 2.0 06/30/16 16:11 36.4 103 24 97/52 96 1.0 06/30/16 16:00 Nasal Cannula 2.0 Physical Exam General Appearance: + mild distress Eyes: PERRL ENT: hearing grossly normal Neck: supple Respiratory/Chest: chest non-tender, + decreased breath sounds, + pertinent finding (bilateral congested breath sounds) Cardiovascular: + tachycardia Abdomen: normal bowel sounds, non tender Extremities: + pedal edema (bilateral lower extremites +2) Laboratory Results Last 24 Hours Test 06/30/16 15:42 07/01/16 06:10 07/01/16 06:42 07/01/16 10:47 Bedside Glucose 170 mg/dl 159 mg/dl 142 mg/dl Sodium Level 141 mmol/L Potassium Level 4.5 mmol/L Chloride Level 104 mmol/L Carbon Dioxide Level 23 mmol/L Anion Gap 14.0 mmol/L Blood Urea Nitrogen 112 mg/dl Creatinine 3.20 mg/dl Est Creatinine Clear Calc Drug Dose 17.2 ml/min Estimated GFR () 20.1 Estimated GFR (Non- 17.3 BUN/Creatinine Ratio 35.1 Random Glucose 149 mg/dl Calcium Level 8.3 mg/dl Magnesium Level 2.5 mg/dl Albumin 2.0 gm/dl Assessment and Plan patient is 80-year-old man with a history of severe multivessel coronary artery disease status post inferior NM in 2015, ischemic cardiomyopathy with prior EF approximately 35%, diabetes, hypertension, dyslipidemia, obstructive sleep apnea presented to ER due to progressive fatigue, lower extremity edema/ weakness and renal failure. 1 acute on chronic systolic congestive heart failure: cardiology is on board, continue dobutamine. consider restart lasix due to worsening fluid overload and poor urine output. poor progress. 2 new onset AFib with RVR: per cardio, will continue amio on current dose, hold off on heparin for now while awaiting response to increased diuretics. 3 acute on chronic renal failure: renal is on board, renal function doesn't improve despite holding diuretics, renal agree to restart lasix. f/u Nephro 4 decubitus ulcer of sacral region: continue wound care, repositioning, nutrition supplements 5 CAD: continue ASA, plavix, statin, BB and nitrate. 6 DM: pharm managing sliding scale. Code: do not resuscitate
--- NOTE | 2016-07-01 16:01 | DIAGNOSTIC IMAGING REPORT ---
CHEST ONE VIEW PORTABLE CLINICAL HISTORY: Pulmonary edema. Heart failure. COMPARISON STUDY: Chest radiograph June 27, 2016. FINDINGS: There is no pneumothorax. Bilateral pleural effusions, right larger than left, have increased since exam of November. Cardiomegaly is unchanged. Interstitial thickening with perihilar and bibasilar opacities have progressed. A 3.9 cm nodular right apical focus has developed. IMPRESSION: 1. Significant progression of moderate pulmonary edema since exam of June 27, 2016. 2. Increasing bilateral pleural effusions, right larger than left, and associated opacities which could reflect atelectasis or less likely pneumonia. 3. 3.9 cm nodular opacity within the right lung apex. This may reflect pulmonary edema with summation artifact of the overlying musculoskeletal structures. This can be assessed on subsequent exams. Electronically signed by: Sherman Adler M.D. 07/01/2016 4:00 PM Dictated Date/Time: 07/01/2016 3:55 PM
--- NOTE | 2016-07-01 17:42 | DIAGNOSTIC IMAGING REPORT ---
CHEST ONE VIEW PORTABLE CLINICAL HISTORY: Left PICC placement COMPARISON STUDY: Chest radiograph performed earlier today. FINDINGS: The tip of the left PICC projects over the cavoatrial junction. Bilateral pleural effusions, right larger left, persist. There is no pneumothorax. Perihilar and bibasilar opacities are noted. These have increased. There is a 3.9 cm mass-like right upper lobe opacity. IMPRESSION: 1. Tip of left PICC projects over the cavoatrial junction. 2. 3.9 cm mass-like right upper lobe opacity. This is nonspecific and this could reflect a mass or dense airspace opacity. A nonemergent chest CT when clinical condition permits is recommended. 3. Progression of pulmonary edema and persistent bilateral pleural effusions, right larger than left. Electronically signed by: Sherman Adler M.D. 07/01/2016 5:40 PM Dictated Date/Time: 07/01/2016 5:38 PM
[2016-07-01] MEDS ORDERED: BUMETANIDE IV 10 MG in DEXTROSE 5% 50ML 10 ML IV SCH (18:30)
--- NOTE | 2016-07-01 18:34 | Progress Note ---
Progress Note patient continues to complain SOB, increased oxygen requirement, poor urine output, chest x ray showed increased pulmonary edema, gave 80mg lasix around 4 pm, but his symptoms are not improving, chest x ray showed more worsening pulmonary edema, discussed with Dr. Ware ([phone]). Dr. Ware suggested to start bumex drip 1mg/hour to see if can increase patient's urine output.
[2016-07-01] MEDS ORDERED: NURSING VERBAL MED ORDER ONE (19:15)
[2016-07-02] VITALS (18 sets, daily range): BP systolic 44–98; BP diastolic 22–51; PULSE 63–105; TEMP 36.4; O2SAT 91–96
[2016-07-02] MEDS: BUMETANIDE IV 10 MG in DEXTROSE 5% 50ML 10 ML IV PRN ×3 (02:35→12:54)
[2016-07-02] MEDS: AMIODARONE / D5W 200 ML IV SCH ×2 (02:36→12:41)
[2016-07-02 07:01] LABS: HEMATOCRIT 31.3 % (42-52); MEAN CELL VOLUME 93.7 fL (80-100); MEAN CORPUSCULAR HGB CONC 34.2 g/dl (32-36); MEAN PLATELET VOLUME 12.1 fL (7.4-10.4); PLATELET COUNT 107 K/uL (130-400); PLT ESTIMATE DECREASED; RED BLOOD COUNT 3.34 M/uL (4.7-6.1); WHITE BLOOD COUNT 3.83 K/uL (4.8-10.8)
[2016-07-02 07:06] LABS: BUN/CREATININE RATIO 36.9 (10-20); CALCIUM 8.3 mg/dl (8.5-10.1); CREATININE 3.5 mg/dl (0.60-1.40); MAGNESIUM 2.4 mg/dl (1.8-2.4); POTASSIUM 4.4 mmol/L (3.5-5.1)
[2016-07-02] MEDS: INSULIN ASPART 100 UNITS/ML 3 ML PEN SC SCH (07:21)
[2016-07-02] MEDS: HEPARIN SOD 5000 UNIT/0.5 ML CARP SQ SCH (09:00)
[2016-07-02] MEDS: ATORVASTATIN 40 MG TAB PO SCH (09:00)
[2016-07-02] MEDS: CYANOCOBALAMIN 500 MCG TAB (VIT B-12) PO SCH (09:00)
[2016-07-02] MEDS: ASPIRIN 81 MG ECTAB PO SCH (09:00)
[2016-07-02] MEDS: CLOPIDOGREL BISULFATE 75 MG TAB PO SCH (09:00)
[2016-07-02] MEDS ORDERED: CHLOROTHIAZIDE INJ 500 MG in DEXTROSE 5% 50ML 50 ML IV ONE (09:45)
[2016-07-02 09:48] LABS: URINE APPEARANCE TURBID (CLEAR); URINE COLOR DK YELLOW; URINE NITRITE NEG (NEG); URINE SPECIFIC GRAVITY 1.016 (1.000-1.030); UROBILINOGEN NEG (NEG)
[2016-07-02 09:58] LABS: MANUAL MICROSCOPIC REQUIRED? YES; REVIEW REQ? NO; URINE BILIRUBIN NEG (NEG)
--- NOTE | 2016-07-02 10:03 | Nephrology Progress Note ---
Nephrology Progress Note Date of Service Jul 02, 2016. Chief Complaint SHI/CKD Subjective Mr. Mcwilliams has had minimal urine output overnight with bumex gtt. He is resting comfortably in bed at this time but was somewhat restless overnight. No fevers. Continues to experience some discomfort in his lower back. There has been no improvement in dyspnea. Oral intake is very poor. Mr. Mcwilliams's son was not available at this time. Review of Systems A complete review of systems was performed. Pertinent positives are noted above. All other systems are negative. Vital Signs Last 8 Hrs Date Time Temp Pulse Resp B/P Pulse Ox O2 Delivery O2 Flow Rate FiO2 07/02/16 08:10 36.4 105 27 87/37 91 Nasal Cannula 5.0 07/02/16 08:00 Nasal Cannula 5.0 07/02/16 04:22 36.4 94 20 98/51 95 Nasal Cannula 5.0 07/02/16 04:00 Nasal Cannula 5.0 I & O 24-Hour Column 07/02/16 08:00 Intake Total 869 ml Output Total 350 ml Balance 519 ml Last Recorded Weight Weight (Kilograms): 67.500 Physical Exam General Appearance: + cachetic, + pertinent finding (lethargic) Head: atraumatic, + pertinent finding (temporal wasting) Eyes: normal inspection, sclerae normal ENT: normal ENT inspection, + pertinent finding (oral mucosa dry without lesion ) Neck: supple, + JVD Respiratory/Chest: + rales, + pertinent finding (coarse with increased work of breathing) Cardiovascular: no gallop, + tachycardia Abdomen/GI: non tender, soft Genitourinary - Male: + pertinent finding (Foreman with <100 ml concentrated urine) Extremities/Musculoskelatal: + pertinent finding (increased distal cyanosis) Neurologic/Psych: + pertinent finding (lethargic, oriented, generalized weakness) Social History Smoking Status: Former smoker Marital Status: Occupation: retired Laboratory Results Past 24 Hours 07/02/16 06:01 07/02/16 06:01 Test 07/01/16 10:47 07/01/16 17:16 07/01/16 20:47 07/02/16 06:01 Bedside Glucose 142 mg/dl (70-99) 145 mg/dl (70-99) 112 mg/dl (70-99) Red Blood Count 3.34 M/uL (4.7-6.1) Mean Corpuscular Volume 93.7 fL (80-100) Mean Corpuscular Hemoglobin 32.0 pg (25-34) Mean Corpuscular Hemoglobin Concent 34.2 g/dl (32-36) RDW Standard Deviation 56.0 fL (36.4-46.3) RDW Coefficient of Variation 16.2 % (11.5-14.5) Mean Platelet Volume 12.1 fL (7.4-10.4) Platelet Estimate DECREASED Anion Gap 16.0 mmol/L (3-11) Est Creatinine Clear Calc Drug Dose 15.7 ml/min Estimated GFR () 18.0 Estimated GFR (Non- 15.6 BUN/Creatinine Ratio 36.9 (10-20) Calcium Level 8.3 mg/dl (8.5-10.1) Magnesium Level 2.4 mg/dl (1.8-2.4) Test 07/02/16 06:37 07/02/16 09:38 Bedside Glucose 129 mg/dl (70-99) Allergies Coded Allergies: No Known Allergies (Unverified , 06/27/16) Medications Current Inpatient Medications Medications (Trade) Dose Ordered Sig/Zurdo Route Start Time Stop Time Status Last Admin Dose Admin Heparin Sodium (Porcine) (Heparin Sq 5000 Unit/0.5ml) 5,000 unit Q12 SQ 06/28/16 09:00 07/28/16 08:59 07/01/16 19:52 5,000 UNIT Acetaminophen (Tylenol Tab) 650 mg Q4H PRN PO 06/27/16 19:15 07/27/16 19:14 Ondansetron HCl (Zofran Inj) 4 mg Q6H PRN IV 06/27/16 19:15 07/27/16 19:14 Nitroglycerin (Nitrostat Tab) 0.4 mg UD PRN SL 06/27/16 19:15 07/27/16 19:14 Polyethylene (Miralax Powder Packet) 17 gm DAILY PRN PO 06/27/16 19:15 07/27/16 19:14 Aspirin (Ecotrin Tab) 81 mg QAM PO 06/28/16 09:00 07/28/16 08:59 07/01/16 11:08 81 MG Atorvastatin Calcium (Lipitor Tab) 80 mg QAM PO 06/28/16 09:00 07/28/16 08:59 06/30/16 07:58 80 MG Clopidogrel Bisulfate (plAVix TAB) 75 mg QAM PO 06/28/16 09:00 07/28/16 08:59 07/01/16 11:08 75 MG Cyanocobalamin (Vitamin B-12 Tab) 500 mcg DAILY PO 06/28/16 09:00 07/28/16 08:59 06/30/16 07:59 500 MCG Miscellaneous Information (Consult Glycemic Management Pharmacy) 1 ea UD PRN N/A 06/27/16 19:55 07/27/16 19:54 Glucose (Glucose 40% Gel) 15-30 GRAMS 15 GRAMS... UD PRN PO 06/27/16 20:30 07/27/16 20:29 Glucose (Glucose Chew Tab) 4-8 Tablets 4 Tabl... UD PRN PO 06/27/16 20:30 07/27/16 20:29 Dextrose (Dextrose 50% 50ML Syringe) 25-50ML OF 50% DW IV FOR... UD PRN IV 06/27/16 20:30 07/27/16 20:29 Glucagon 1 mg 1 mg UD PRN SQ 06/27/16 20:30 07/27/16 20:29 Furosemide 40 mg/ Albumin Human 54 ml @ 54 mls/hr DAILY@1600 IV 06/28/16 16:00 Future Hold 06/29/16 17:22 54 MLS/HR Dobutamine HCl (DOBUTamine / D5W) 250 ml @ 0 mls/hr Q0M PRN IV 06/28/16 12:00 07/28/16 11:59 07/01/16 15:00 10 MLS/HR Enteral Nutritional Formula 1 can 1 can QDD PO 06/28/16 16:45 07/28/16 16:44 Amiodarone HCL/ Dextrose (Nexterone / D5w) 200 ml @ 16.7 mls/hr [id number] IV 06/30/16 14:55 07/30/16 14:54 07/02/16 02:36 16.7 MLS/HR Insulin Aspart (novoLOG ASPART) SLIDING SCALE G... BIDM SC 06/30/16 16:45 07/30/16 16:44 Albuterol/ Ipratropium (Duoneb) 3 ml Q4 PRN INH 07/01/16 15:30 07/31/16 15:29 Heparin Sodium (Porcine) 5 ml 5 ml PRN PRN FLUSH 07/01/16 17:45 07/31/16 17:44 Bumetanide 10 mg/ Dextrose 50 ml @ 2.5 mls/hr Q20H PRN IV 07/02/16 01:45 08/01/16 01:44 07/02/16 06:34 2.5 MLS/HR Chlorothiazide Sodium/Dextrose (Diuril Inj/D5 50ml) 68 ml @ 200 mls/hr NOW ONCE IV 07/02/16 09:45 07/02/16 10:05 Impression (1) Atrial fibrillation and flutter (2) Acute on chronic renal failure (3) Acute on chronic systolic (congestive) heart failure (4) CAD (coronary artery disease) (5) DM2 (diabetes mellitus, type 2) Mr. Mcwilliams is a critically-ill, frail 80 year-old male with an ischemic cardiomyopathy who developed acute on chronic renal failure in the setting of decompensated acute on chronic systolic congestive heart failure. Clinical presentation consistent with a cardiorenal syndrome. He is suffering from dyspnea in the setting of heart failure and pulmonary edema. Presentation complicated by new atrial fibrillation/flutter. He remains on a dobutamine gtt @ 5 and amiodarone infusion. No significant response to boluses of furosemide yesterday and Bumex gtt started overnight. Renal function continues to decline with minimal urine output. CXR was repeated showing worsening significant pulmonary edema. Renal US reviewed. Recommendations -- Bumex gtt @ 2 mg/h -- Diuril 500 mg x 1 dose now -- Check UA and urine sodium. If Julissa very low, the need for solute may explain lack of response to diuretics. Granular casts or evidence of ATN may also suggest potential for renal recovery. Unfortunately, overall prognosis remains guarded/poor and options limited. -- Hemodialysis would be very unlikely to offer a benefit in management. With advanced cardiac dysfunction more complications than benefit would be expected with this intervention. -- Continue dobutamine infusion; will discuss with cardiology. Hemodynamic support of BP may be considered - favor levophed over dopa due to SVT history. Milrinone may be another consideration for inotropic support. -- Suggest palliative care consult and low dose morphine PRN for dyspnea.
[2016-07-02 10:06] LABS: URINE RBC >30 /hpf (0-4)
[2016-07-02 10:07] LABS: URINE BACTERIA 4+ (NEG)
--- NOTE | 2016-07-02 11:01 | Hospitalist Progress Note ---
Hospitalist Progress Note Date of Service Jul 02, 2016. Subjective Pt evaluation today including: conversation w/ family, physical exam, chart review, lab review, review of studies, conversation w/ customer experience consultant, review of inpatient medication list no doing well overnight, poor urine output, 50cc/overnight, Objective Vital Signs Date Time Temp Pulse Resp B/P Pulse Ox O2 Delivery O2 Flow Rate FiO2 07/02/16 08:10 36.4 105 27 87/37 91 Nasal Cannula 5.0 07/02/16 08:00 Nasal Cannula 5.0 07/02/16 04:22 36.4 94 20 98/51 95 Nasal Cannula 5.0 07/02/16 04:00 Nasal Cannula 5.0 07/02/16 00:33 95 22 91/47 96 Nasal Cannula 5.0 07/02/16 00:00 Nasal Cannula 5.0 07/01/16 20:23 110 25 98/54 93 Nasal Cannula 5.0 07/01/16 20:00 Nasal Cannula 4.0 07/01/16 16:00 Nasal Cannula 4.0 07/01/16 15:33 36.4 101 25 98/49 Nasal Cannula 5.0 07/01/16 12:44 36.6 116 24 80/50 100 Nasal Cannula 2.0 07/01/16 12:00 Nasal Cannula 2.0 Physical Exam General Appearance: + cachetic Neck: supple Respiratory/Chest: + pertinent finding (congested breath sound) Cardiovascular: + irregularly irregular Abdomen: soft (petechiae ) Skin: + pertinent finding (petechiae around abdomen) Laboratory Results Last 24 Hours Test 07/01/16 10:47 07/01/16 17:16 07/01/16 20:47 07/02/16 06:01 Bedside Glucose 142 mg/dl 145 mg/dl 112 mg/dl White Blood Count 3.83 K/uL Red Blood Count 3.34 M/uL Hemoglobin 10.7 g/dL Hematocrit 31.3 % Mean Corpuscular Volume 93.7 fL Mean Corpuscular Hemoglobin 32.0 pg Mean Corpuscular Hemoglobin Concent 34.2 g/dl RDW Standard Deviation 56.0 fL RDW Coefficient of Variation 16.2 % Platelet Count 107 K/uL Mean Platelet Volume 12.1 fL Platelet Estimate DECREASED Sodium Level 142 mmol/L Potassium Level 4.4 mmol/L Chloride Level 104 mmol/L Carbon Dioxide Level 22 mmol/L Anion Gap 16.0 mmol/L Blood Urea Nitrogen 129 mg/dl Creatinine 3.50 mg/dl Est Creatinine Clear Calc Drug Dose 15.7 ml/min Estimated GFR () 18.0 Estimated GFR (Non- 15.6 BUN/Creatinine Ratio 36.9 Random Glucose 118 mg/dl Calcium Level 8.3 mg/dl Magnesium Level 2.4 mg/dl Test 07/02/16 06:37 07/02/16 09:38 Bedside Glucose 129 mg/dl Urine Color DK YELLOW Urine Appearance TURBID Urine pH 5.0 Urine Specific [place] 1.016 Urine Protein 1+ Urine Glucose (UA) NEG Urine Ketones NEG Urine Occult Blood 3+ Urine Nitrite NEG Urine Bilirubin NEG Urine Urobilinogen NEG Urine Leukocyte Esterase MODERATE Urine RBC (Auto) /hpf Urine Hyaline Casts (Auto) /lpf Urine RBC >30 /hpf Urine WBC 10-30 /hpf Urine Epithelial Cells 10-20 /lpf Urine Renal Epithelial Cells /lpf Urine Bacteria 4+ Urine Hyaline Casts 10-30 /lpf Urine Granular Casts 1-5 /lpf Urine Pathogenic Casts /lpf Urine Yeast (Auto) Urine Random Sodium 8 mEq/L Assessment and Plan patient is 80-year-old man with a history of severe multivessel coronary artery disease status post inferior [place] in 2014, ischemic cardiomyopathy with prior EF approximately 35%, diabetes, hypertension, dyslipidemia, obstructive sleep apnea presented to ER due to progressive fatigue, lower extremity edema/ weakness and renal failure. 1 acute on chronic systolic congestive heart failure: cardiorenal syndrome, getting worse, started bumex drip last night, but didn't improve his urine output, 50cc/overnight. BP drop to 77/50, discussed with cardiology on the phone , poor progress. 2 new onset AFib with RVR: f/u cardio. poor progress. 3 acute on chronic renal failure: cardiorenal syndrome, getting worse, start bumex drip yesterday night, urine output 55cc/overnight. Nephro on board, f/u Camille 4 decubitus ulcer of sacral region: continue wound care, repositioning, nutrition supplements 5 CAD: continue ASA, plavix, statin, BB and nitrate. 6 DM: pharm managing sliding scale. Code: do not resuscitate Explain all the medication conditions to son, son understood poor progress and he will explain everything to family. They will decide if add Levophed to patient when patient has further BP dropping.
--- NOTE | 2016-07-02 11:53 | Cardiology Follow-Up ---
Subjective Subjective Date of Service: Jul 02, 2016. Pt evaluation today including: conversation w/ patient, conversation w/ family , physical exam, chart review, lab review, review of studies, conversation w/ it web development consultant, review of inpatient medication list Additional Details: Progressive renal failure despite diuretics/inotropes Worsening hypotension. Unresponsive this AM. Problem List Medical Problems: (1) Acute renal failure Status: Acute (2) Anasarca Status: Acute (3) Pulmonary edema Status: Acute (4) Troponin level elevated Status: Acute Objective Vital Signs Last Vital Signs Documentation Date Time Temp Pulse Resp B/P Pulse Ox O2 Delivery O2 Flow Rate FiO2 07/02/16 08:10 36.4 105 27 87/37 91 Nasal Cannula 5.0 Physical Exam: General Appearance: + cachetic Respiratory/Chest: no respiratory distress, + decreased breath sounds, + crackles Cardiovascular: + JVD, + irregularly irregular, + pertinent finding (cool, edema to shins) Abdomen: soft Neurologic/Psychiatric: + pertinent finding (unresponsive) Assessment and Plan 1. Acute systolic/low output heart failure 2. AFib with RVR 3. Acute renal failure 4. Severe multivessel CAD With progressive multiorgan failure, end-stage heart failure prognosis grim. No options for mechanical support/transplant, or dialysis Agree with palliative care consultation and comfort measures Long discussion with family and understanding of situation. - For now continue continue current therapy, will increase dobutamine with loop/ thiazide diuretics - Addition of vasopressors unlikely to change current long-term prognosis. Continued [facility] stay due to: multiple IV medications needed Discharge planning: uncertain Medications: Current Inpatient Medications Medications (Trade) Dose Ordered Sig/Zurdo Route Start Time Stop Time Status Last Admin Dose Admin Heparin Sodium (Porcine) (Heparin Sq 5000 Unit/0.5ml) 5,000 unit Q12 SQ 06/28/16 09:00 07/28/16 08:59 07/01/16 19:52 5,000 UNIT Acetaminophen (Tylenol Tab) 650 mg Q4H PRN PO 06/27/16 19:15 07/27/16 19:14 Ondansetron HCl (Zofran Inj) 4 mg Q6H PRN IV 06/27/16 19:15 07/27/16 19:14 Nitroglycerin (Nitrostat Tab) 0.4 mg UD PRN SL 06/27/16 19:15 07/27/16 19:14 Polyethylene (Miralax Powder Packet) 17 gm DAILY PRN PO 06/27/16 19:15 07/27/16 19:14 Aspirin (Ecotrin Tab) 81 mg QAM PO 06/28/16 09:00 07/28/16 08:59 07/01/16 11:08 81 MG Atorvastatin Calcium (Lipitor Tab) 80 mg QAM PO 06/28/16 09:00 07/28/16 08:59 06/30/16 07:58 80 MG Clopidogrel Bisulfate (plAVix TAB) 75 mg QAM PO 06/28/16 09:00 07/28/16 08:59 07/01/16 11:08 75 MG Cyanocobalamin (Vitamin B-12 Tab) 500 mcg DAILY PO 06/28/16 09:00 07/28/16 08:59 06/30/16 07:59 500 MCG Miscellaneous Information (Consult Glycemic Management Pharmacy) 1 ea UD PRN N/A 06/27/16 19:55 07/27/16 19:54 Glucose (Glucose 40% Gel) 15-30 GRAMS 15 GRAMS... UD PRN PO 06/27/16 20:30 07/27/16 20:29 Glucose (Glucose Chew Tab) 4-8 Tablets 4 Tabl... UD PRN PO 06/27/16 20:30 07/27/16 20:29 Dextrose (Dextrose 50% 50ML Syringe) 25-50ML OF 50% DW IV FOR... UD PRN IV 06/27/16 20:30 07/27/16 20:29 Glucagon 1 mg 1 mg UD PRN SQ 06/27/16 20:30 07/27/16 20:29 Furosemide 40 mg/ Albumin Human 54 ml @ 54 mls/hr DAILY@1600 IV 06/28/16 16:00 Future Hold 06/29/16 17:22 54 MLS/HR Dobutamine HCl (DOBUTamine / D5W) 250 ml @ 0 mls/hr Q0M PRN IV 06/28/16 12:00 07/28/16 11:59 07/01/16 15:00 10 MLS/HR Enteral Nutritional Formula 1 can 1 can QDD PO 06/28/16 16:45 07/28/16 16:44 Amiodarone HCL/ Dextrose (Nexterone / D5w) 200 ml @ 16.7 mls/hr [id number] IV 06/30/16 14:55 07/30/16 14:54 07/02/16 02:36 16.7 MLS/HR Insulin Aspart (novoLOG ASPART) SLIDING SCALE G... BIDM SC 06/30/16 16:45 07/30/16 16:44 Albuterol/ Ipratropium (Duoneb) 3 ml Q4 PRN INH 07/01/16 15:30 07/31/16 15:29 Heparin Sodium (Porcine) 5 ml 5 ml PRN PRN FLUSH 07/01/16 17:45 07/31/16 17:44 Bumetanide/ Dextrose (Bumex IV/D5 50ml) 50 ml @ 2.5 mls/hr Q20H PRN IV 07/02/16 01:45 08/01/16 01:44 07/02/16 06:34 2.5 MLS/HR Lab Results: 07/02/16 06:01 07/02/16 06:01 Test 07/02/16 06:01 07/02/16 06:37 07/02/16 09:38 Red Blood Count 3.34 M/uL (4.7-6.1) Mean Corpuscular Volume 93.7 fL (80-100) Mean Corpuscular Hemoglobin 32.0 pg (25-34) Mean Corpuscular Hemoglobin Concent 34.2 g/dl (32-36) RDW Standard Deviation 56.0 fL (36.4-46.3) RDW Coefficient of Variation 16.2 % (11.5-14.5) Mean Platelet Volume 12.1 fL (7.4-10.4) Platelet Estimate DECREASED Anion Gap 16.0 mmol/L (3-11) Est Creatinine Clear Calc Drug Dose 15.7 ml/min Estimated GFR () 18.0 Estimated GFR (Non- 15.6 BUN/Creatinine Ratio 36.9 (10-20) Calcium Level 8.3 mg/dl (8.5-10.1) Magnesium Level 2.4 mg/dl (1.8-2.4) Albumin 1.7 gm/dl (3.4-5.0) Bedside Glucose 129 mg/dl (70-99) Urine Color DK YELLOW Urine Appearance TURBID (CLEAR) Urine pH 5.0 (4.5-7.5) Urine Specific [place] 1.016 (1.000-1.030) Urine Protein 1+ (NEG) Urine Glucose (UA) NEG (NEG) Urine Ketones NEG (NEG) Urine Occult Blood 3+ (NEG) Urine Nitrite NEG (NEG) Urine Bilirubin NEG (NEG) Urine Urobilinogen NEG (NEG) Urine Leukocyte Esterase MODERATE (NEG) Urine RBC (Auto) /hpf (0-4) Urine Hyaline Casts (Auto) /lpf (0-5) Urine RBC >30 /hpf (0-4) Urine WBC 10-30 /hpf (0-5) Urine Epithelial Cells 10-20 /lpf (0-5) Urine Renal Epithelial Cells /lpf (0-5) Urine Bacteria 4+ (NEG) Urine Hyaline Casts 10-30 /lpf (0-5) Urine Granular Casts 1-5 /lpf (0) Urine Pathogenic Casts /lpf (0) Urine Yeast (Auto) (NONE PRSENT) Urine Random Sodium 8 mEq/L
[2016-07-02] MEDS: DOBUTamine / D5W 500 MG IV PRN (12:43)
--- NOTE | 2016-07-02 15:02 | Death Summary ---
Summary of Admission Date Jun 27, 2016 at 19:13 Date & Time of Jul 02, 2016. 14:37PM Cause of acute on chronic systolic heart failure, multiple organ failure, cardiorenal syndrome Hospital Course patient is 80-year-old man with a history of severe multivessel coronary artery disease status post inferior [place] in 2014, ischemic cardiomyopathy with prior EF approximately 35%, diabetes, hypertension, dyslipidemia, obstructive sleep apnea presented to ER due to progressive fatigue, lower extremity edema/ weakness and renal failure. after patient admitted to hospital, his renal function continue getting worsen, cardiology and bookkeeping clerk were on board, but patient didn't response to lasix and dobutamine. Patient also didn't response to bumex drip. pulmanary edema getting worse, patient developed multiple organs failure due to heart failure. Discussed with family member about patient's medical condition, family wants comfortable care. patient passed at 14:37 on 07/02/2016
== END 2016-07-02 16:17 | disposition expired | DRG 286 ==
LOC: ENRESERVDT → ENRESERVTM → C.EDB 17:17 → C.2T 19:13 → C.2E 06-28 09:35
PROVIDERS: ADMIT Hospitalist; ATTEND Internal Medicine
PROC: 4A023N6 Measurement of Cardiac Sampling and Pressure, Right Heart, Percutaneous Approach (ICD-10-PCS; principal; 2016-06-29 13:46)
DX: I13.0 Hypertensive heart and chronic kidney disease with heart failure and stage 1 through stage 4 chronic kidney disease, or unspecified chronic kidney disease (principal); I50.23 Acute on chronic systolic (congestive) heart failure; L89.153 Pressure ulcer of sacral region, stage 3; N17.9 Acute kidney failure, unspecified; E46 Unspecified protein-calorie malnutrition; E78.5 Hyperlipidemia, unspecified; E11.22 Type 2 diabetes mellitus with diabetic chronic kidney disease; N18.9 Chronic kidney disease, unspecified; I25.10 Atherosclerotic heart disease of native coronary artery without angina pectoris; I25.2 Old myocardial infarction; I12.9 Hypertensive chronic kidney disease with stage 1 through stage 4 chronic kidney disease, or unspecified chronic kidney disease; Z51.5 Encounter for palliative care; I08.0 Rheumatic disorders of both mitral and aortic valves; I48.91 Unspecified atrial fibrillation; G47.33 Obstructive sleep apnea (adult) (pediatric); Z79.02 Long term (current) use of antithrombotics/antiplatelets; Z79.82 Long term (current) use of aspirin; Z79.899 Other long term (current) drug therapy; Z80.0 Family history of malignant neoplasm of digestive organs; Z80.3 Family history of malignant neoplasm of breast; Z95.5 Presence of coronary angioplasty implant and graft; Z66 Do not resuscitate; I25.5 Ischemic cardiomyopathy

== ENCOUNTER → 2016-06-27 | Outpatient (CLI) | payer BC ==
[~2016-06-27] MED LIST: ASPEC81 PO; CYAN500T PO; FRS/40 PO; GLC500 PO; GLIP-197 PO; ISOS60TA25 PO; LPT40 PO; LSN5 PO; METF1000 PO; METF1TAB53 PO; NTRSLP4 SL; PLV75 PO; POTA10CA28 PO; RANO500T PO; TPRSR50 PO
[2016-06-27 09:31] LABS: HEMATOCRIT 32.5 % (42-52); MEAN CELL VOLUME 94.2 fL (80-100); MEAN CORPUSCULAR HEMOGLOBIN 32.5 pg (25-34); MEAN CORPUSCULAR HGB CONC 34.5 g/dl (32-36); MEAN PLATELET VOLUME 11.3 fL (7.4-10.4); PLATELET COUNT 193 K/uL (130-400); RED BLOOD COUNT 3.45 M/uL (4.7-6.1); WHITE BLOOD COUNT 10.72 K/uL (4.8-10.8)
[2016-06-27 09:54] LABS: ANISOCYTOSIS PRESENT; BASO % 0.1 %; BASO ABS # 0.01 K/uL (0-0.2); COMPLETE YES; ECHINOCYTES 2+; IG% 0.3 %; LYMPH % 2.9 %; LYMPH ABS # 0.31 K/uL (1.2-3.4); MONO % 0.9 %; NEUT % 95.8 %
[2016-06-27 09:58] LABS: BLOOD UREA NITROGEN 91 mg/dl (7-18); BUN/CREATININE RATIO 36.3 (10-20); CALCIUM 9.4 mg/dl (8.5-10.1); CARBON DIOXIDE 22 mmol/L (21-32); CHLORIDE 102 mmol/L (98-107); GLUCOSE 94 mg/dl (70-99); SODIUM 140 mmol/L (136-145)
== END | disposition home or self-care (01) ==
LOC: C.LAB1850 08:34
PROVIDERS: ATTEND Internal Medicine
DX: I25.5 Ischemic cardiomyopathy (principal)